=== PATIENT | male | born 1960 | race Caucasian/White ===

== ENCOUNTER 2016-06-17 16:55 | Inpatient (IN) | payer MEDICARE ==
[~2016-06-17] VITALS: Ht 170.2 cm; Wt 78.9 kg
[2016-06-17 16:59] VITALS: BP 143/117
[2016-06-17] MEDS ORDERED: HYDROmorphone 1mg/ml Carpuject IVP ONE (17:30)
[2016-06-17 17:56] LABS: BASOPHILS % (AUTO) 1.4 % (0.0-2.0); EOSINOPHILS % (AUTO) 0.6 % (0.0-3.0); LYMPHOCYTES % (AUTO) 13.8 % (20.0-45.0); MEAN CORPUSCULAR HEMOGLOBIN 30.8 PG (27.0-31.0); MEAN CORPUSCULAR HGB CONC 33.8 G/DL (32.0-36.0); MEAN CORPUSCULAR VOLUME 91 FL (80-99); MEAN PLATELET VOLUME 6.5 FL (6.5-10.1); MONOCYTES % (AUTO) 7.7 % (1.0-10.0); NEUTROPHILS % (AUTO) 76.5 % (45.0-75.0); PLATELET COUNT 197 K/UL (150-450); RED BLOOD COUNT 4.79 M/UL (4.70-6.10); WHITE BLOOD COUNT 6.5 K/UL (4.8-10.8)
[2016-06-17 18:14] LABS: ALANINE AMINOTRANSFERASE 30 U/L (3-41); ALBUMIN/GLOBULIN RATIO 1.3 (1.0-2.7); ANION GAP 17 (5-15); ASPARTATE AMINO TRANSFERASE 41 U/L (5-40); CALCIUM 9.1 mg/dL (8.6-10.2); CARBON DIOXIDE 26 mEQ/L (20-30); CHLORIDE 97 mEQ/L (98-107); CREATININE 0.9 mg/dL (0.7-1.2); GLOMERULAR FILTRATION RATE > 60 mL/min (>60); HEMOLYSIS 6; LIPASE 24 U/L (< 60); SODIUM 140 mEQ/L (135-145); TOTAL PROTEIN 7.6 g/dL (6.6-8.7)
[2016-06-17] MEDS ORDERED: DEPAKOTE125 MG PO (19:37)
[2016-06-17] MEDS ORDERED: FENTANYL1 EAC1 TOPIC (19:37)
[2016-06-17] MEDS ORDERED: AMITRIPTYLINE100 MG ORAL (19:37)
[2016-06-17] MEDS ORDERED: FLUTICASONE PRO16 G1 NASAL (19:37)
[2016-06-17] MEDS ORDERED: GABAPENTIN600 MG ORAL (19:37)
[2016-06-17] MEDS ORDERED: FAMOTIDINE20 MG ORAL (19:37)
[2016-06-17] MEDS ORDERED: DIAZEPAM5 MG ORAL (19:37)
[2016-06-17] MEDS ORDERED: CYMBALTA30 MG ORAL (19:37)
[2016-06-17] MEDS ORDERED: VITAMIN C500 M1 ORAL (19:37)
[2016-06-17] MEDS ORDERED: LISINOPRIL40 MG ORAL (19:37)
[2016-06-17] MEDS ORDERED: RISPERDAL1 MG PO (19:37)
[2016-06-17] MEDS ORDERED: MULTIVITAMINS1 EAC2 ORAL (19:37)
[2016-06-17] MEDS ORDERED: TRAZODONE HCL150 MG ORAL (19:37)
[2016-06-17] MEDS ORDERED: MESALAMINE800 MG PO (19:37)
[2016-06-17 19:58] LABS: APPEARANCE,URINE CLEAR; KETONES,URINE 2+ (NEGATIVE); LEUKOCYTE ESTERASE ,URINE NEGATIVE (NEGATIVE); NITRITE,URINE NEGATIVE (NEGATIVE); PH,URINE 8 (4.5-8.0); PROTEIN,URINE NEGATIVE (NEGATIVE); UROBILINOGEN,URINE NORMAL MG/DL (0.0-1.0)
[2016-06-17] MEDS ORDERED: Miralax 17gm pkt ORAL PRN (20:00)
[2016-06-17] MEDS ORDERED: cloNIDine 0.2mg Tab ORAL ONE (20:00)
[2016-06-17] MEDS ORDERED: Nitroglycerin Subl 0.4mg tab (Bottle Of 25) SL PRN (20:00)
[2016-06-17] MEDS ORDERED: Mylanta II UD 30ml ORAL PRN (20:00)
[2016-06-17] MEDS: D5 1/2NS 1,000 ML IV SCH (20:20)
[2016-06-17] MEDS: Heparin 5000 units/ml inj SUBQ SCH (21:00)
[2016-06-17 21:14] VITALS: BP 142/103
--- NOTE | 2016-06-17 21:50 | Emergency Room Report ---
History of Present Illness General Chief Complaint: Abdominal Pain Source: Medical Record Present Illness HPI 55-year-old male presents ED complaining of abdominal pain. Patient resides in SNF. Has history of chronic abdominal pain. History of Crohn's and has had multiple surgeries. States that he is unable to see pain management doctor for several weeks now. The facility is unable to renew his pain medication so he sent here for evaluation. Patient states the pain is his usual pain with his not receive pain medications. Pain is sharp. 10/10. Nonradiating. No aggravating relieving factors. Denies chest pain or shortness of breath. Denies nausea or vomiting. Denies any other associated symptoms Allergies: Coded Allergies: DIPHENHYDRAMINE (Verified Allergy, Unknown, 06/17/16) LORAZEPAM (Verified Allergy, Unknown, 06/17/16) MORPHINE (Verified Allergy, Unknown, 06/17/16) Patient History Past Medical History: HTN, COPD, other - crohns Past Surgical History: none Pertinent Family History: none Social History: Denies: alcohol use, drug use, smoking Immunizations: UTD Reviewed Nursing Documentation: PMH: Agreed, PSxH: Agreed Nursing Documentation-PMH Hx Hypertension: Yes Hx COPD: Yes Hx Gastrointestinal Problems: Yes - Chron's Ds. Review of Systems All Other Systems: negative except mentioned in HPI Physical Exam Vital Signs Date Time Temp Pulse Resp B/P Pulse Ox O2 Delivery O2 Flow Rate FiO2 06/17/16 16:48 98.8 89 18 143/117 95 Room Air Sp02 EP Interpretation: reviewed, normal General Appearance: no apparent distress, alert, GCS 15, non-toxic Head: normocephalic, atraumatic Eyes: bilateral eye PERRL, bilateral eye normal inspection ENT: hearing grossly normal, normal pharynx, no angioedema, normal voice Neck: full range of motion, supple/symm/no masses Respiratory: chest non-tender, lungs clear, normal breath sounds, speaking full sentences Cardiovascular #1: regular rate, rhythm, no edema Cardiovascular #2: 2+ carotid (R), 2+ carotid (L), 2+ radial (R), 2+ radial (L) , 2+ dorsalis pedis (R), 2+ dorsalis pedis (L) Gastrointestinal: normal bowel sounds, soft, non-distended, no guarding, no rebound, tenderness Rectal: deferred Genitourinary: normal inspection, no CVA tenderness Musculoskeletal: back normal, gait/station normal, normal range of motion, non- tender Neurologic: alert, oriented x3, responsive, motor strength/tone normal, sensory intact, speech normal Psychiatric: judgement/insight normal, memory normal, mood/affect normal, no suicidal/homicidal ideation Reflexes: 3+ bicep (R), 3+ bicep (L), 3+ tricep (R), 3+ tricep (L), 3+ knee (R) , 3+ knee (L) Skin: normal color, no rash, warm/dry, well hydrated Lymphatic: no adenopathy Medical Decision Making Diagnostic Impression: Primary Impression: Intractable abdominal pain Additional Impression: Crohns disease Qualified Codes: K50.919 - Crohn's disease, unspecified, with unspecified complications ER Course Hospital Course 55-year-old male presents to ED for abdominal pain. History of Crohn's Differential diagnoses include: pancreatitis, sepsis, UTI, crohns flare Clinical course Patient placed on stretcher. radiation monitor. After initial history and physical I ordered labs, IV fluids, UA, pain medication Labs - no leukocytosis, Hb/Hct stable. electrolytes ok Patient required multiple rounds of medication to get pain under control. Pain is his typical chronic pain from Crohn's. No reason for further imaging at this time. Patient will require admission for pain management BP elevated in ER. Given clonidine with BP Case discussed with Dr. Salmon and he agreed to accept the patient to his service for further care and support I feel this is a highly complex case requiring extensive working including EKG/ Rhythm strip, Xray/CT/US, Blood/urine lab work, repeat exams while in ED, and administration of strong opiates/narcotics for pain control, admission to hospital or close patient follow up. Diagnosis - intractable abdominal pain, Crohn's disease Patient admitted to floor in serious condition Labs Test 06/17/16 15:30 06/17/16 19:40 White Blood Count 6.5 K/UL (4.8-10.8) Red Blood Count 4.79 M/UL (4.70-6.10) Hemoglobin 14.7 G/DL (14.2-18.0) Hematocrit 43.6 % (42.0-52.0) Mean Corpuscular Volume 91 FL (80-99) Mean Corpuscular Hemoglobin 30.8 PG (27.0-31.0) Mean Corpuscular Hemoglobin Concent 33.8 G/DL (32.0-36.0) Red Cell Distribution Width 12.0 % (11.6-14.8) Platelet Count 197 K/UL (150-450) Mean Platelet Volume 6.5 FL (6.5-10.1) Neutrophils (%) (Auto) 76.5 % (45.0-75.0) Lymphocytes (%) (Auto) 13.8 % (20.0-45.0) Monocytes (%) (Auto) 7.7 % (1.0-10.0) Eosinophils (%) (Auto) 0.6 % (0.0-3.0) Basophils (%) (Auto) 1.4 % (0.0-2.0) Sodium Level 140 mEQ/L (135-145) Potassium Level 4.0 mEQ/L (3.4-4.9) Chloride Level 97 mEQ/L (98-107) Carbon Dioxide Level 26 mEQ/L (20-30) Anion Gap 17 (5-15) Blood Urea Nitrogen 9 mg/dL (7-23) Creatinine 0.9 mg/dL (0.7-1.2) Estimat Glomerular Filtration Rate > 60 mL/min (>60) Glucose Level 88 mg/dL (74-106) Calcium Level 9.1 mg/dL (8.6-10.2) Total Bilirubin 0.3 mg/dL (0.0-1.2) Aspartate Amino Transf (AST/SGOT) 41 U/L (5-40) Alanine Aminotransferase (ALT/SGPT) 30 U/L (3-41) Alkaline Phosphatase 81 U/L (40-129) Total Protein 7.6 g/dL (6.6-8.7) Albumin 4.3 g/dL (3.5-5.2) Globulin 3.3 g/dL Albumin/Globulin Ratio 1.3 (1.0-2.7) Lipase 24 U/L (< 60) Urine Color Pale yellow Urine Appearance Clear Urine pH 8 (4.5-8.0) Urine Specific [place] 1.010 (1.005-1.035) Urine Protein Negative (NEGATIVE) Urine Glucose (UA) Negative (NEGATIVE) Urine Ketones 2+ (NEGATIVE) Urine Occult Blood Negative (NEGATIVE) Urine Nitrite Negative (NEGATIVE) Urine Bilirubin Negative (NEGATIVE) Urine Urobilinogen Normal MG/DL (0.0-1.0) Urine Leukocyte Esterase Negative (NEGATIVE) Last Vital Signs Date Time Temp Pulse Resp B/P Pulse Ox O2 Delivery O2 Flow Rate FiO2 06/17/16 21:14 98.8 82 18 142/103 99 Room Air Status: improved Disposition: ADMITTED INPATIENT Condition: Serious Referrals: JG SALMON (PCP) HENRI TATE M.D. Jun 17, 2016 21:50
[2016-06-17] MEDS ORDERED: HYDROmorphone 1mg/ml Carpuject IVP PRN (22:30)
[2016-06-17 22:50] VITALS: BP 140/93
--- NOTE | 2016-06-17 23:19 | Pulmonology Progress Note ---
Assessment/Plan Problems: (1) COPD (chronic obstructive pulmonary disease) (2) Abdominal distention (3) Crohns disease (4) Intractable abdominal pain Assessment/Plan npo Iv fluids pain management respiratory treatment GI evaluation Subjective Interval Events: c/o abdominal pain Allergies: Coded Allergies: DIPHENHYDRAMINE (Verified Allergy, Unknown, 06/17/16) LORAZEPAM (Verified Allergy, Unknown, 06/17/16) MORPHINE (Verified Allergy, Unknown, 06/17/16) Objective Last 24 Hour Vital Signs Date Time Temp Pulse Resp B/P Pulse Ox O2 Delivery O2 Flow Rate FiO2 06/17/16 22:50 98.1 75 18 140/93 93 Room Air 06/17/16 21:14 98.8 82 18 142/103 99 Room Air 06/17/16 20:05 143/117 06/17/16 18:14 98.8 06/17/16 16:59 98.8 81 18 143/117 95 Room Air 06/17/16 16:48 98.8 89 18 143/117 95 Room Air General Appearance: WD/WN HEENT: normocephalic, anicteric Respiratory/Chest: chest wall non-tender, lungs clear Cardiovascular: normal peripheral pulses, normal rate Abdomen: normal bowel sounds, soft, non tender Extremities: no cyanosis Skin: no rash Laboratory Tests 06/17/16 15:30: White Blood Count 6.5, Red Blood Count 4.79, Hemoglobin 14.7, Hematocrit 43.6, Mean Corpuscular Volume 91, Mean Corpuscular Hemoglobin 30.8, Mean Corpuscular Hemoglobin Concent 33.8, Red Cell Distribution Width 12.0, Platelet Count 197, Mean Platelet Volume 6.5, Neutrophils (%) (Auto) 76.5H, Lymphocytes (%) (Auto) 13.8L, Monocytes (%) (Auto) 7.7, Eosinophils (%) (Auto) 0.6, Basophils (%) (Auto ) 1.4, Sodium Level 140, Potassium Level 4.0, Chloride Level 97L, Carbon Dioxide Level 26, Anion Gap 17H, Blood Urea Nitrogen 9, Creatinine 0.9, Estimat Glomerular Filtration Rate > 60, Glucose Level 88, Calcium Level 9.1, Total Bilirubin 0.3, Aspartate Amino Transf (AST/SGOT) 41H, Alanine Aminotransferase ( ALT/SGPT) 30, Alkaline Phosphatase 81, Total Protein 7.6, Albumin 4.3, Globulin 3.3, Albumin/Globulin Ratio 1.3, Lipase 24 06/17/16 19:40: Urine Color Pale yellow, Urine Appearance Clear, Urine pH 8, Urine Specific [place] 1.010, Urine Protein Negative, Urine Glucose (UA) Negative, Urine Ketones 2+H, Urine Occult Blood Negative, Urine Nitrite Negative, Urine Bilirubin Negative, Urine Urobilinogen Normal, Urine Leukocyte Esterase Negative Current Medications Medications (Trade) Dose Ordered Sig/William Route PRN Reason Start Time Stop Time Status Last Admin Dose Admin Acetaminophen (Tylenol) 650 mg Q4H PRN ORAL fever 06/17/16 20:00 07/17/16 19:59 Al Hydroxide/Mg Hydroxide (Mylanta II) 30 ml Q6H PRN ORAL dyspepsia 06/17/16 20:00 07/17/16 19:59 Dextrose (Dextrose 50%) STAT PRN IV Hypoglycemia 06/17/16 20:00 07/17/16 19:59 Dextrose/Sodium Chloride (D5 0.45% NS) 1,000 ml @ 75 mls/hr [id number] IV 06/17/16 20:00 07/17/16 19:59 06/17/16 20:20 Heparin Sodium (Porcine) (Heparin 5000 units/ml) 5,000 units EVERY 12 HOURS SUBQ 06/17/16 21:00 07/17/16 20:59 Hydromorphone HCl (Dilaudid) 1 mg Q3H PRN IVP For Pain 06/17/16 22:30 06/24/16 22:29 06/17/16 22:45 Nitroglycerin (Ntg) 0.4 mg Q5M X 3 DOSES PRN SL Prn Chest Pain 06/17/16 20:00 07/17/16 19:59 Ondansetron HCl (Zofran) 4 mg Q6H PRN IVP Nausea & Vomiting 06/17/16 20:00 07/17/16 19:59 Polyethylene Glycol (Miralax) 17 gm HSPRN PRN ORAL Constipation 06/17/16 20:00 07/17/16 19:59 KHALIF RILEY Jun 17, 2016 23:19
[2016-06-18] VITALS: BP 152/103
[2016-06-18] MEDS ORDERED: HYDROmorphone 1mg/ml Carpuject IVP PRN (01:30)
[2016-06-18 07:03] LABS: ALANINE AMINOTRANSFERASE 24 U/L (3-41); ALBUMIN/GLOBULIN RATIO 1.2 (1.0-2.7); AMYLASE 36 U/L (10-110); ANION GAP 13 (5-15); ASPARTATE AMINO TRANSFERASE 32 U/L (5-40); CALCIUM 8.5 mg/dL (8.6-10.2); CARBON DIOXIDE 26 mEQ/L (20-30); CHLORIDE 98 mEQ/L (98-107); CREATININE 0.8 mg/dL (0.7-1.2); GLOMERULAR FILTRATION RATE > 60 mL/min (>60); HEMOLYSIS 0; POTASSIUM 3.5 mEQ/L (3.4-4.9); SODIUM 137 mEQ/L (135-145); TOTAL PROTEIN 6.5 g/dL (6.6-8.7)
[2016-06-18 07:16] LABS: EOSINOPHILS % (AUTO) 4.1 % (0.0-3.0); LYMPHOCYTES % (AUTO) 24.6 % (20.0-45.0); MEAN CORPUSCULAR HEMOGLOBIN 30.5 PG (27.0-31.0); MEAN CORPUSCULAR HGB CONC 33.3 G/DL (32.0-36.0); MEAN CORPUSCULAR VOLUME 92 FL (80-99); MEAN PLATELET VOLUME 6.3 FL (6.5-10.1); MONOCYTES % (AUTO) 14.2 % (1.0-10.0); NEUTROPHILS % (AUTO) 55.1 % (45.0-75.0); PLATELET COUNT 165 K/UL (150-450); RED BLOOD COUNT 4.34 M/UL (4.70-6.10); RED CELL DISTRIBUTION WIDTH 12.1 % (11.6-14.8); WHITE BLOOD COUNT 4.6 K/UL (4.8-10.8)
[2016-06-18] MEDS: DULoxetine 30mg cap ORAL SCH (08:23)
[2016-06-18] MEDS: D5 1/2NS 1,000 ML IV SCH ×2 (08:24→22:35)
[2016-06-18] MEDS: Heparin 5000 units/ml inj SUBQ SCH ×2 (08:30→21:00)
[2016-06-18 08:49] VITALS: BP 119/84
--- NOTE | 2016-06-18 09:06 | Consultation ---
History of Present Illness General Date patient seen: Jun 18, 2016 Chief Complaint: Abdominal Pain Present Illness Allergies: Coded Allergies: DIPHENHYDRAMINE (Verified Allergy, Unknown, 06/17/16) LORAZEPAM (Verified Allergy, Unknown, 06/17/16) MORPHINE (Verified Allergy, Unknown, 06/17/16) Medication History Scheduled Amitriptyline HCl (Amitriptyline HCl), 100 MG ORAL BEDTIME, (Reported) Ascorbic Acid* (Vitamin C*), 500 MG ORAL DAILY, (Reported) Duloxetine Hcl* (Cymbalta*), 30 MG ORAL DAILY, (Reported) Famotidine (Famotidine), 20 MG ORAL DAILY, (Reported) Fentanyl 50MCG Patch (Fentanyl 50MCG Patch*), 1 PATCH TOPIC EVERY 72 HOURS, ( Reported) Fluticasone Propionate* (Fluticasone Propionate*), 1 SPRAY NASAL DAILY, ( Reported) Gabapentin* (Gabapentin*), 600 MG ORAL THREE TIMES A DAY, (Reported) Lisinopril* (Lisinopril*), 40 MG ORAL DAILY, (Reported) Multivitamins* (Multivitamins*), 1 TAB ORAL DAILY, (Reported) Risperidone* (Risperdal*), 1 MG PO DAILY, (Reported) Trazodone* (Trazodone*), 150 MG ORAL BEDTIME, (Reported) Scheduled PRN Diazepam* (Diazepam*), 5 MG ORAL Q12HR PRN for ANXIETY, (Reported) Miscellaneous Medications Divalproex Sodium (Depakote), 125 MG PO, (Reported) Mesalamine (Mesalamine), 800 MG PO, (Reported) Patient History Healthcare decision maker Resuscitation status Full Code Advanced Directive on File Physical Exam Last 24 Hour Vital Signs Date Time Temp Pulse Resp B/P Pulse Ox O2 Delivery O2 Flow Rate FiO2 06/18/16 08:49 98.3 54 17 119/84 95 Room Air 06/18/16 00:00 97.7 77 18 152/103 94 Room Air 06/17/16 23:15 98.1 06/17/16 22:50 98.1 75 18 140/93 93 Room Air 06/17/16 21:17 98.8 82 18 142/103 99 Room Air 06/17/16 21:14 98.8 82 18 142/103 99 Room Air 06/17/16 20:05 143/117 06/17/16 18:14 98.8 06/17/16 16:59 98.8 81 18 143/117 95 Room Air 06/17/16 16:48 98.8 89 18 143/117 95 Room Air Intake and Output 06/17/16 06/18/16 19:00 07:00 Intake Total 500 ml 525 ml Balance 500 ml 525 ml Intake IV Total 500 ml 525 ml # Voids 1 Laboratory Tests Test 06/17/16 15:30 06/17/16 19:40 06/18/16 05:30 White Blood Count 6.5 K/UL (4.8-10.8) 4.6 K/UL (4.8-10.8) L Red Blood Count 4.79 M/UL (4.70-6.10) 4.34 M/UL (4.70-6.10) L Hemoglobin 14.7 G/DL (14.2-18.0) 13.2 G/DL (14.2-18.0) L Hematocrit 43.6 % (42.0-52.0) 39.7 % (42.0-52.0) L Mean Corpuscular Volume 91 FL (80-99) 92 FL (80-99) Mean Corpuscular Hemoglobin 30.8 PG (27.0-31.0) 30.5 PG (27.0-31.0) Mean Corpuscular Hemoglobin Concent 33.8 G/DL (32.0-36.0) 33.3 G/DL (32.0-36.0) Red Cell Distribution Width 12.0 % (11.6-14.8) 12.1 % (11.6-14.8) Platelet Count 197 K/UL (150-450) 165 K/UL (150-450) Mean Platelet Volume 6.5 FL (6.5-10.1) 6.3 FL (6.5-10.1) L Neutrophils (%) (Auto) 76.5 % (45.0-75.0) H 55.1 % (45.0-75.0) Lymphocytes (%) (Auto) 13.8 % (20.0-45.0) L 24.6 % (20.0-45.0) Monocytes (%) (Auto) 7.7 % (1.0-10.0) 14.2 % (1.0-10.0) H Eosinophils (%) (Auto) 0.6 % (0.0-3.0) 4.1 % (0.0-3.0) H Basophils (%) (Auto) 1.4 % (0.0-2.0) 2.0 % (0.0-2.0) Sodium Level 140 mEQ/L (135-145) 137 mEQ/L (135-145) Potassium Level 4.0 mEQ/L (3.4-4.9) 3.5 mEQ/L (3.4-4.9) Chloride Level 97 mEQ/L (98-107) L 98 mEQ/L (98-107) Carbon Dioxide Level 26 mEQ/L (20-30) 26 mEQ/L (20-30) Anion Gap 17 (5-15) H 13 (5-15) Blood Urea Nitrogen 9 mg/dL (7-23) 8 mg/dL (7-23) Creatinine 0.9 mg/dL (0.7-1.2) 0.8 mg/dL (0.7-1.2) Estimat Glomerular Filtration Rate > 60 mL/min (>60) > 60 mL/min (>60) Glucose Level 88 mg/dL (74-106) 82 mg/dL (74-106) Calcium Level 9.1 mg/dL (8.6-10.2) 8.5 mg/dL (8.6-10.2) L Total Bilirubin 0.3 mg/dL (0.0-1.2) 0.4 mg/dL (0.0-1.2) Aspartate Amino Transf (AST/SGOT) 41 U/L (5-40) H 32 U/L (5-40) Alanine Aminotransferase (ALT/SGPT) 30 U/L (3-41) 24 U/L (3-41) Alkaline Phosphatase 81 U/L (40-129) 69 U/L (40-129) Total Protein 7.6 g/dL (6.6-8.7) 6.5 g/dL (6.6-8.7) L Albumin 4.3 g/dL (3.5-5.2) 3.6 g/dL (3.5-5.2) Globulin 3.3 g/dL 2.9 g/dL Albumin/Globulin Ratio 1.3 (1.0-2.7) 1.2 (1.0-2.7) Lipase 24 U/L (< 60) Urine Color Pale yellow Urine Appearance Clear Urine pH 8 (4.5-8.0) Urine Specific [place] 1.010 (1.005-1.035) Urine Protein Negative (NEGATIVE) Urine Glucose (UA) Negative (NEGATIVE) Urine Ketones 2+ (NEGATIVE) H Urine Occult Blood Negative (NEGATIVE) Urine Nitrite Negative (NEGATIVE) Urine Bilirubin Negative (NEGATIVE) Urine Urobilinogen Normal MG/DL (0.0-1.0) Urine Leukocyte Esterase Negative (NEGATIVE) Activated Partial Thromboplast Time 25 SEC (23-33) Amylase Level 36 U/L (10-110) Height (Feet): 5 Height (Inches): 7.00 Weight (Pounds): 174 Medications Current Medications Medications (Trade) Dose Ordered Sig/William Route PRN Reason Start Time Stop Time Status Last Admin Dose Admin Acetaminophen (Tylenol) 650 mg Q4H PRN ORAL fever 06/17/16 20:00 07/17/16 19:59 Al Hydroxide/Mg Hydroxide (Mylanta II) 30 ml Q6H PRN ORAL dyspepsia 06/17/16 20:00 07/17/16 19:59 Amitriptyline HCl (Elavil) 100 mg BEDTIME ORAL 06/18/16 21:00 07/18/16 20:59 Dextrose (Dextrose 50%) STAT PRN IV Hypoglycemia 06/17/16 20:00 07/17/16 19:59 Dextrose/Sodium Chloride (D5 0.45% NS) 1,000 ml @ 75 mls/hr [id number] IV 06/17/16 20:00 07/17/16 19:59 06/18/16 08:24 Diazepam (Valium) 5 mg Q12H PRN ORAL ANXIETY 06/18/16 07:45 06/25/16 07:44 Duloxetine HCl (Cymbalta) 30 mg DAILY ORAL 06/18/16 09:00 07/18/16 08:59 06/18/16 08:23 Fentanyl (Duragesic) 1 patch EVERY 72 HOURS TDERMAL 06/19/16 09:00 06/26/16 08:59 Gabapentin (Neurontin) 600 mg THREE TIMES A DAY ORAL 06/18/16 09:00 07/18/16 08:59 06/18/16 08:22 Heparin Sodium (Porcine) (Heparin 5000 units/ml) 5,000 units EVERY 12 HOURS SUBQ 06/17/16 21:00 07/17/16 20:59 06/18/16 08:30 Hydromorphone HCl (Dilaudid) 2 mg Q3H PRN IVP For Pain 06/18/16 01:30 06/25/16 01:29 06/18/16 08:23 Nitroglycerin (Ntg) 0.4 mg Q5M X 3 DOSES PRN SL Prn Chest Pain 06/17/16 20:00 07/17/16 19:59 Ondansetron HCl (Zofran) 4 mg Q6H PRN IVP Nausea & Vomiting 06/17/16 20:00 07/17/16 19:59 Polyethylene Glycol (Miralax) 17 gm HSPRN PRN ORAL Constipation 06/17/16 20:00 07/17/16 19:59 Risperidone (RisperDAL) 1 mg DAILY ORAL 06/18/16 09:00 07/18/16 08:59 06/18/16 08:23 Trazodone HCl (Desyrel) 150 mg BEDTIME ORAL 06/18/16 21:00 07/18/16 20:59 Assessment/Plan Assessment/Plan (1) Crohn's Disease (2) Intractable abdominal pain (3) Lumbar DDD (4) Lumbar Spondylosis Seen dictated. MILAN MALLOY Jun 18, 2016 09:06
--- NOTE | 2016-06-18 13:42 | Diagnostic Imaging Report ---
Indication: Abdominal pain Technique: Supine view of the abdomen Comparison: none Findings: Considerable bowel gas is present. Suspect that most of this is in the ascending and transverse colon which is upper limits of normal in caliber but not frankly dilated. However, in the left lower quadrant and midabdomen there are also some dilated small bowel loops. No unusual masses or calcifications. Impression: Dilated small bowel loops. May reflect ileus or small bowel. The presence of considerable colon gas favors the former. Recommend followup radiographs, consider CT as clinically indicated Dr. Lott notified at the time of interpretation
--- NOTE | 2016-06-18 15:08 | Pulmonology Progress Note ---
Assessment/Plan Problems: (1) COPD (chronic obstructive pulmonary disease) (2) Abdominal distention (3) Crohns disease (4) Intractable abdominal pain Assessment/Plan pain consult appreciated low residual diet Iv fluids pain management respiratory treatment GI evaluation Subjective ROS Limited/Unobtainable: No Interval Events: no new ccmplains Allergies: Coded Allergies: DIPHENHYDRAMINE (Verified Allergy, Unknown, 06/17/16) LORAZEPAM (Verified Allergy, Unknown, 06/17/16) MORPHINE (Verified Allergy, Unknown, 06/17/16) Objective Last 24 Hour Vital Signs Date Time Temp Pulse Resp B/P Pulse Ox O2 Delivery O2 Flow Rate FiO2 06/18/16 14:37 98.3 06/18/16 12:20 98.3 06/18/16 08:49 98.3 54 17 119/84 95 Room Air 06/18/16 00:00 97.7 77 18 152/103 94 Room Air 06/17/16 23:15 98.1 06/17/16 22:50 98.1 75 18 140/93 93 Room Air 06/17/16 21:17 98.8 82 18 142/103 99 Room Air 06/17/16 21:14 98.8 82 18 142/103 99 Room Air 06/17/16 20:05 143/117 06/17/16 18:14 98.8 06/17/16 16:59 98.8 81 18 143/117 95 Room Air 06/17/16 16:48 98.8 89 18 143/117 95 Room Air Intake and Output 06/17/16 06/18/16 19:00 07:00 Intake Total 500 ml 525 ml Balance 500 ml 525 ml IV Total 500 ml 525 ml # Voids 1 General Appearance: WD/WN HEENT: normocephalic, anicteric Respiratory/Chest: chest wall non-tender, lungs clear Cardiovascular: normal peripheral pulses, normal rate Abdomen: normal bowel sounds, soft, non tender Extremities: no cyanosis Skin: no rash, no lesions Laboratory Tests 06/17/16 15:30: White Blood Count 6.5, Red Blood Count 4.79, Hemoglobin 14.7, Hematocrit 43.6, Mean Corpuscular Volume 91, Mean Corpuscular Hemoglobin 30.8, Mean Corpuscular Hemoglobin Concent 33.8, Red Cell Distribution Width 12.0, Platelet Count 197, Mean Platelet Volume 6.5, Neutrophils (%) (Auto) 76.5H, Lymphocytes (%) (Auto) 13.8L, Monocytes (%) (Auto) 7.7, Eosinophils (%) (Auto) 0.6, Basophils (%) (Auto ) 1.4, Sodium Level 140, Potassium Level 4.0, Chloride Level 97L, Carbon Dioxide Level 26, Anion Gap 17H, Blood Urea Nitrogen 9, Creatinine 0.9, Estimat Glomerular Filtration Rate > 60, Glucose Level 88, Calcium Level 9.1, Total Bilirubin 0.3, Aspartate Amino Transf (AST/SGOT) 41H, Alanine Aminotransferase ( ALT/SGPT) 30, Alkaline Phosphatase 81, Total Protein 7.6, Albumin 4.3, Globulin 3.3, Albumin/Globulin Ratio 1.3, Lipase 24 06/17/16 19:40: Urine Color Pale yellow, Urine Appearance Clear, Urine pH 8, Urine Specific [place] 1.010, Urine Protein Negative, Urine Glucose (UA) Negative, Urine Ketones 2+H, Urine Occult Blood Negative, Urine Nitrite Negative, Urine Bilirubin Negative, Urine Urobilinogen Normal, Urine Leukocyte Esterase Negative 06/18/16 05:30: White Blood Count 4.6L, Red Blood Count 4.34L, Hemoglobin 13.2L, Hematocrit 39.7L, Mean Corpuscular Volume 92, Mean Corpuscular Hemoglobin 30.5, Mean Corpuscular Hemoglobin Concent 33.3, Red Cell Distribution Width 12.1, Platelet Count 165, Mean Platelet Volume 6.3L, Neutrophils (%) (Auto) 55.1, Lymphocytes ( %) (Auto) 24.6, Monocytes (%) (Auto) 14.2H, Eosinophils (%) (Auto) 4.1H, Basophils (%) (Auto) 2.0, Sodium Level 137, Potassium Level 3.5, Chloride Level 98, Carbon Dioxide Level 26, Anion Gap 13, Blood Urea Nitrogen 8, Creatinine 0.8 , Estimat Glomerular Filtration Rate > 60, Glucose Level 82, Calcium Level 8.5L , Total Bilirubin 0.4, Aspartate Amino Transf (AST/SGOT) 32, Alanine Aminotransferase (ALT/SGPT) 24, Alkaline Phosphatase 69, Total Protein 6.5L, Albumin 3.6, Globulin 2.9, Albumin/Globulin Ratio 1.2, Activated Partial Thromboplast Time 25, Amylase Level 36 Current Medications Medications (Trade) Dose Ordered Sig/William Route PRN Reason Start Time Stop Time Status Last Admin Dose Admin Acetaminophen (Tylenol) 650 mg Q4H PRN ORAL fever 06/17/16 20:00 07/17/16 19:59 Al Hydroxide/Mg Hydroxide (Mylanta II) 30 ml Q6H PRN ORAL dyspepsia 06/17/16 20:00 07/17/16 19:59 Amitriptyline HCl (Elavil) 100 mg BEDTIME ORAL 06/18/16 21:00 07/18/16 20:59 Cholestyramine Resin (Questran) 4 gm BID ORAL 06/18/16 18:00 07/18/16 17:59 Dextrose (Dextrose 50%) STAT PRN IV Hypoglycemia 06/17/16 20:00 07/17/16 19:59 Dextrose/Sodium Chloride (D5 0.45% NS) 1,000 ml @ 75 mls/hr [id number] IV 06/17/16 20:00 07/17/16 19:59 06/18/16 08:24 Diazepam (Valium) 5 mg Q12H PRN ORAL ANXIETY 06/18/16 07:45 06/25/16 07:44 Duloxetine HCl (Cymbalta) 30 mg DAILY ORAL 06/18/16 09:00 07/18/16 08:59 06/18/16 08:23 Fentanyl (Duragesic) 1 patch EVERY 72 HOURS TDERMAL 06/19/16 09:00 06/26/16 08:59 Gabapentin (Neurontin) 600 mg THREE TIMES A DAY ORAL 06/18/16 09:00 07/18/16 08:59 06/18/16 13:29 Heparin Sodium (Porcine) (Heparin 5000 units/ml) 5,000 units EVERY 12 HOURS SUBQ 06/17/16 21:00 07/17/16 20:59 06/18/16 08:30 Hydromorphone HCl (Dilaudid) 3 mg Q3H PRN IM For Pain 06/18/16 15:00 06/25/16 14:59 06/18/16 14:47 Mesalamine (Asacol) 800 mg THREE TIMES A DAY ORAL 06/18/16 14:00 07/18/16 13:59 06/18/16 14:46 Nitroglycerin (Ntg) 0.4 mg Q5M X 3 DOSES PRN SL Prn Chest Pain 06/17/16 20:00 07/17/16 19:59 Ondansetron HCl (Zofran) 4 mg Q6H PRN IVP Nausea & Vomiting 06/17/16 20:00 07/17/16 19:59 Polyethylene Glycol (Miralax) 17 gm HSPRN PRN ORAL Constipation 06/17/16 20:00 07/17/16 19:59 Risperidone (RisperDAL) 1 mg DAILY ORAL 06/18/16 09:00 07/18/16 08:59 06/18/16 08:23 Trazodone HCl (Desyrel) 150 mg BEDTIME ORAL 06/18/16 21:00 07/18/16 20:59 KHALIF RILEY 21, 2017 15:08
[2016-06-18 16:20] VITALS: BP 150/101
[2016-06-18 17:05] VITALS: BP 141/97
[2016-06-18 20:00] VITALS: BP 137/90
[2016-06-18] MEDS: Cholestyramine 4gm Pkt ORAL SCH (20:53)
[2016-06-18] MEDS: TraZODone 100mg tab ORAL SCH (20:53)
[2016-06-18] MEDS: Amitriptyline 100mg tab ORAL SCH (20:53)
--- NOTE | 2016-06-18 22:19 | History and Physical Report ---
DATE OF ADMISSION: 06/17/2016 TIME SEEN: At 1 p.m. ATTENDING PHYSICIAN: Jose Lott D.O. CONSULTANTS: 1. Eli Jackson M.D. 2. Fahad Harry M.D. 3. Whitney Ramírez M.D. BRIEF HISTORY: This is a 55-year-old male from [facility], presented with increasing intractable abdominal pain. He does have a history of ulcerative colitis and Crohn's and multiple abdominal surgeries. Currently, calm, resting in bed, feeling better, ate okay, no complaint. REVIEW OF SYSTEMS: No chest pain. No shortness of breath. No nausea, vomiting, or diarrhea. PAST MEDICAL HISTORY: Ulcerative colitis, Crohn's disease, and hypertension. PAST SURGICAL HISTORY: Multiple abdominal surgeries and possible adhesion surgery. ALLERGIES: Morphine and Ativan. MEDICATIONS: Duragesic patch, Elavil, Desyrel, Questran, Asacol, Cymbalta, Neurontin, Risperdal, Valium, Dilaudid, heparin, Tylenol, MiraLax, Zofran, Dilantin, diphenhydramine, lorazepam, and nitroglycerin. SOCIAL HISTORY: No smoking. No alcohol. No intravenous drug use. FAMILY HISTORY: Noncontributory. PHYSICAL EXAMINATION: GENERAL: Calm in bed, oriented x3, in no distress. VITAL SIGNS: Temperature is 98 degrees, pulse 54, respirations 17, and blood pressure 119/84. CARDIOVASCULAR: No murmur. LUNGS: Distant and clear. ABDOMEN: Slightly tender and slightly distended. No guarding. No rigidity. No rebound. Bowel sounds positive. EXTREMITIES: No cyanosis, clubbing, or edema. NEUROLOGIC: Cranial nerves II through XII are grossly intact. Deep tendon reflexes 2+. Muscle strength is 4/5. LABORATORY DATA: Labs at this time show a white count of 4.6, hemoglobin and hematocrit 12/39, and platelets 165,000. BMP shows calcium of 8.5, otherwise normal. PTT is 25. Urinalysis, 2+ ketones. ASSESSMENT: 1. Intractable abdominal pain, status post surgery. 2. History of adhesions. 3. Ulcerative colitis. 4. Crohn's. 5. Hypertension. PLAN: Continue premedications. and blood pressure control. Dietary followup. OT/PT and dietary evaluation. CBC and BMP in the morning. Dr. Jackson, Dr. Harry, and Dr. Ramírez to consult. We will continue to follow this patient medically. Jose Lott D.O. DR: TRENT JOB#: [id number] CC:
[2016-06-18] MEDS: Depakote 125mg Sprinkles ORAL SCH (22:34)
--- NOTE | 2016-06-18 23:19 | Consultation ---
DATE OF CONSULTATION: 06/18/2016 CHIEF COMPLAINT: Abdominal pain. HISTORY OF PRESENT ILLNESS: This is a 55-year-old male with past medical history of inflammatory bowel disease according to him, he was diagnosed at age 14. He had a total colectomy, then he had multiple abdominal surgeries bowel resection and after that he was diagnosed with Crohn's. Currently, taking some Crohn's medication most probably mesalamine, but he does not know the exact name. He does not have any colon left, so it is most of the small intestine and he mentioned that he had multiple may be five surgeries on the small intestine and most of his also is removed. He was admitted to the hospital with complaint of abdominal pain. The patient first time at [place], but he has been going to multiple hospitals, last to the [place]. Apparently, he is going to the hospital frequently and is on lots of pain medication. PAST MEDICAL HISTORY: 1. History of inflammatory bowel disease most probably, Crohn's disease. 2. Hypertension. 3. COPD. PAST SURGICAL HISTORY: Total colectomy and also five abdominal surgeries after that with bowel resection. MEDICATIONS: Please see medication reconciliation list. ALLERGIES: Diphenhydramine, lorazepam, and morphine. SOCIAL HISTORY: The patient has a prior history of tobacco usage, quit many years ago. Also alcohol quit many years ago. No IV drug abuse. FAMILY HISTORY: Noncontributory. REVIEW OF SYSTEMS: A 10-point review of system was performed and pertinent positives in history of present illness. PHYSICAL EXAMINATION: GENERAL: This is a well-developed male, in no acute distress. VITAL SIGNS: Temperature 98.3 degrees, pulse 64, respirations 17, and blood pressure 119/84. HEENT: Normocephalic and atraumatic. Sclerae anicteric. NECK: Supple. No evidence of lymphadenopathy. CARDIOVASCULAR: Regular rate and rhythm. Plus S1 and S2. LUNGS: Decreased breath sounds bilaterally based on the supine exam. ABDOMEN: Soft, mildly distended. Mildly tender to palpation in bilateral lower quadrants. No rebound. No guarding. No peritoneal sign. EXTREMITIES: No cyanosis. No clubbing. No edema. LABORATORY AND DIAGNOSTIC DATA: Sodium 137, potassium 2.5, BUN 8, creatinine 0.8. White count is 4.6, hemoglobin 13, hematocrit 39, and platelets are 165,00. ASSESSMENT AND PLAN: The patient is a 55-year-old male with history of inflammatory bowel disease admitted to the hospital with abdominal pain. At this time, there is no acute finding. There is no evidence of anemia. No leukocytosis. No abnormal liver function tests, highly doubt that the patient has acute flare-up of the Crohn's disease. Also there is no obvious small bowel obstruction. The patient is passing gas and having bowel movements. So actually, the patient was admitted for pain management. Our plan will be to send ESR and C-reactive protein. I will get an abdominal x-ray. We will resume the patient's diet. Resume the patient's mesalamine and we will follow with labs and pain management. Fahad Harry M.D. DR: Biju JOB#: [id number] CC:
[2016-06-19] VITALS: BP 151/99
[2016-06-19 04:00] VITALS: BP 137/85
[2016-06-19 07:27] LABS: BASOPHILS % (AUTO) 1.9 % (0.0-2.0); EOSINOPHILS % (AUTO) 4.8 % (0.0-3.0); LYMPHOCYTES % (AUTO) 30.8 % (20.0-45.0); MEAN CORPUSCULAR HEMOGLOBIN 30.3 PG (27.0-31.0); MEAN CORPUSCULAR HGB CONC 32.9 G/DL (32.0-36.0); MEAN CORPUSCULAR VOLUME 92 FL (80-99); MEAN PLATELET VOLUME 7.2 FL (6.5-10.1); MONOCYTES % (AUTO) 14.8 % (1.0-10.0); NEUTROPHILS % (AUTO) 47.7 % (45.0-75.0); PLATELET COUNT 195 K/UL (150-450); RED BLOOD COUNT 4.31 M/UL (4.70-6.10); RED CELL DISTRIBUTION WIDTH 12.1 % (11.6-14.8)
[2016-06-19 07:38] LABS: ALANINE AMINOTRANSFERASE 26 U/L (3-41); ALBUMIN/GLOBULIN RATIO 1.3 (1.0-2.7); ANION GAP 15 (5-15); ASPARTATE AMINO TRANSFERASE 30 U/L (5-40); CALCIUM 8.6 mg/dL (8.6-10.2); CARBON DIOXIDE 25 mEQ/L (20-30); CHLORIDE 100 mEQ/L (98-107); CREATININE 1.1 mg/dL (0.7-1.2); GLOMERULAR FILTRATION RATE > 60 mL/min (>60); HEMOLYSIS 5; POTASSIUM 3.5 mEQ/L (3.4-4.9); SODIUM 140 mEQ/L (135-145); TOTAL PROTEIN 6.8 g/dL (6.6-8.7)
[2016-06-19 08:00] VITALS: BP 138/93
--- NOTE | 2016-06-19 08:14 | General Progress Note ---
Assessment/Plan Assessment/Plan (1) Crohn's Disease (2) Intractable abdominal pain (3) Lumbar DDD (4) Lumbar Spondylosis Pt will be going for MRI and will be continued on Fentanyl and Dilaudid. Pt was d/w Dr. Ramírez and he concurred. Subjective Date patient seen: Jun 19, 2016 Time patient seen: 07:15 - am Constitutional: Denies: chills, diaphoresis, fever, malaise, weakness HEENT: Reports: other, Denies: blurred vision, double vision, ear discharge, ear pain, eye pain, mouth pain, mouth swelling, nose congestion, nose pain, tearing, throat pain, throat swelling Cardiovascular: Denies: chest pain, edema, irregular heart rate, lightheadedness, palpitations, syncope Respiratory: Denies: SOB at rest, SOB with excertion, cough, orthopnea, shortness of breath, sputum, stridor, wheezing Gastrointestinal/Abdominal: Reports: abdominal pain, Denies: abdomen distended , black stools, blood in stool, constipated, diarrhea, difficulty swallowing, nausea, poor appetite, poor fluid intake, rectal bleeding, tarry stools, vomiting Genitourinary: Denies: burning, discharge, flank pain, frequency, hematuria, incontinence, pain, urgency Neurologic/Psychiatric: Denies: anxiety, depressed, emotional problems, headache, numbness, paresthesia, pre-existing deficit, seizure, tingling, tremors, weakness Endocrine: Denies: excessive sweating, flushing, increased hunger, increased thirst, increased urine, intolerance to cold, intolerance to heat, unexplained weight gain, unexplained weight loss Hematologic/Lymphatic: Denies: anemia, easy bleeding, easy bruising Allergies: Coded Allergies: DIPHENHYDRAMINE (Verified Allergy, Unknown, 06/17/16) LORAZEPAM (Verified Allergy, Unknown, 06/17/16) MORPHINE (Verified Allergy, Unknown, 06/17/16) Subjective Patient is comfortable on current medication regimen and is going for MRI later this morning. Objective Last 24 Hour Vital Signs Date Time Temp Pulse Resp B/P Pulse Ox O2 Delivery O2 Flow Rate FiO2 06/19/16 04:00 97.8 76 18 137/85 96 Room Air 06/19/16 00:00 98.1 72 20 151/99 94 Room Air 06/18/16 21:24 98.4 06/18/16 20:00 98.4 88 19 137/90 92 Room Air 06/18/16 18:15 98.1 06/18/16 17:05 97.9 84 18 141/97 96 Room Air 06/18/16 16:20 98.1 98 19 150/101 93 Room Air 06/18/16 12:20 98.3 06/18/16 08:49 98.3 54 17 119/84 95 Room Air Intake and Output 06/18/16 06/19/16 19:00 07:00 Intake Total 855 ml 615 ml Balance 855 ml 615 ml Intake Oral 480 ml 240 ml IV Total 375 ml 375 ml # Voids 1 Laboratory Tests 06/19/16 06:00: White Blood Count 5.0, Red Blood Count 4.31L, Hemoglobin 13.1L, Hematocrit 39.7L , Mean Corpuscular Volume 92, Mean Corpuscular Hemoglobin 30.3, Mean Corpuscular Hemoglobin Concent 32.9, Red Cell Distribution Width 12.1, Platelet Count 195, Mean Platelet Volume 7.2, Neutrophils (%) (Auto) 47.7, Lymphocytes (% ) (Auto) 30.8, Monocytes (%) (Auto) 14.8H, Eosinophils (%) (Auto) 4.8H, Basophils (%) (Auto) 1.9, Sodium Level 140, Potassium Level 3.5, Chloride Level 100, Carbon Dioxide Level 25, Anion Gap 15, Blood Urea Nitrogen 10, Creatinine 1.1, Estimat Glomerular Filtration Rate > 60, Glucose Level 84, Calcium Level 8.6, Total Bilirubin 0.3, Aspartate Amino Transf (AST/SGOT) 30, Alanine Aminotransferase (ALT/SGPT) 26, Alkaline Phosphatase 71, C-Reactive Protein, Quantitative 2.0H, Total Protein 6.8, Albumin 3.9, Globulin 2.9, Albumin/ Globulin Ratio 1.3 Height (Feet): 5 Height (Inches): 7.00 Weight (Pounds): 174 General Appearance: no apparent distress EENT: PERRL/EOMI, normal ENT inspection Neck: non-tender, normal alignment Cardiovascular: normal rate, regular rhythm Respiratory/Chest: lungs clear, normal breath sounds Abdomen: tender Extremities: non-tender Edema: no edema noted Arm (L), no edema noted Arm (R), no edema noted Leg (L), no edema noted Leg (R), no edema noted Pedal (L), no edema noted Pedal (R), no edema noted Generalized Neurologic: alert, responsive Skin: warm/dry MILAN MALLOY Jun 19, 2016 08:14
[2016-06-19] MEDS: Heparin 5000 units/ml inj SUBQ SCH ×2 (09:00→21:00)
--- NOTE | 2016-06-19 10:06 | General Progress Note ---
Assessment/Plan Problem List: (1) COPD (chronic obstructive pulmonary disease) ICD Codes: J44.9 - Chronic obstructive pulmonary disease, unspecified SNOMED: 84921757 (2) Crohns disease ICD Codes: K50.90 - Crohn's disease, unspecified, without complications SNOMED: 09186345, 434345884 Qualifiers: Qualified Codes: K50.919 - Crohn's disease, unspecified, with unspecified complications (3) Abdominal distention ICD Codes: R14.0 - Abdominal distension (gaseous) SNOMED: 17972842 Assessment/Plan KUB reviewed on regular diet fu CRP cholestyramine pain control Subjective ROS Limited/Unobtainable: Yes Constitutional: Reports: no symptoms HEENT: Reports: no symptoms Cardiovascular: Reports: no symptoms Respiratory: Reports: no symptoms Gastrointestinal/Abdominal: Reports: no symptoms Genitourinary: Reports: no symptoms Neurologic/Psychiatric: Reports: no symptoms Endocrine: Reports: no symptoms Allergies: Coded Allergies: DIPHENHYDRAMINE (Verified Allergy, Unknown, 06/17/16) LORAZEPAM (Verified Allergy, Unknown, 06/17/16) MORPHINE (Verified Allergy, Unknown, 06/17/16) Subjective wants regular diet had BM Objective Last 24 Hour Vital Signs Date Time Temp Pulse Resp B/P Pulse Ox O2 Delivery O2 Flow Rate FiO2 06/19/16 04:00 97.8 76 18 137/85 96 Room Air 06/19/16 00:00 98.1 72 20 151/99 94 Room Air 06/18/16 21:24 98.4 06/18/16 20:00 98.4 88 19 137/90 92 Room Air 06/18/16 18:15 98.1 06/18/16 17:05 97.9 84 18 141/97 96 Room Air 06/18/16 16:20 98.1 98 19 150/101 93 Room Air 06/18/16 12:20 98.3 Intake and Output 06/18/16 06/19/16 19:00 07:00 Intake Total 855 ml 615 ml Balance 855 ml 615 ml Intake Oral 480 ml 240 ml IV Total 375 ml 375 ml # Voids 1 Laboratory Tests 06/19/16 06:00: White Blood Count 5.0, Red Blood Count 4.31L, Hemoglobin 13.1L, Hematocrit 39.7L , Mean Corpuscular Volume 92, Mean Corpuscular Hemoglobin 30.3, Mean Corpuscular Hemoglobin Concent 32.9, Red Cell Distribution Width 12.1, Platelet Count 195, Mean Platelet Volume 7.2, Neutrophils (%) (Auto) 47.7, Lymphocytes (% ) (Auto) 30.8, Monocytes (%) (Auto) 14.8H, Eosinophils (%) (Auto) 4.8H, Basophils (%) (Auto) 1.9, Sodium Level 140, Potassium Level 3.5, Chloride Level 100, Carbon Dioxide Level 25, Anion Gap 15, Blood Urea Nitrogen 10, Creatinine 1.1, Estimat Glomerular Filtration Rate > 60, Glucose Level 84, Calcium Level 8.6, Total Bilirubin 0.3, Aspartate Amino Transf (AST/SGOT) 30, Alanine Aminotransferase (ALT/SGPT) 26, Alkaline Phosphatase 71, C-Reactive Protein, Quantitative 2.0H, Total Protein 6.8, Albumin 3.9, Globulin 2.9, Albumin/ Globulin Ratio 1.3 Procedure: XRAY Abdomen 1v Indication: Abdominal pain Technique: Supine view of the abdomen Comparison: none Findings: Considerable bowel gas is present. Suspect that most of this is in the ascending and transverse colon which is upper limits of normal in caliber but not frankly dilated. However, in the left lower quadrant and midabdomen there are also some dilated small bowel loops. No unusual masses or calcifications. Impression: Dilated small bowel loops. May reflect ileus or small bowel. The presence of considerable colon gas favors the former. Recommend followup radiographs, consider CT as clinically indicated Dr. Lott notified at the time of interpretation Height (Feet): 5 Height (Inches): 7.00 Weight (Pounds): 174 General Appearance: alert EENT: normal ENT inspection Neck: supple Cardiovascular: normal rate Respiratory/Chest: decreased breath sounds Abdomen: normal bowel sounds, non tender, soft Extremities: non-tender WIL DELACRUZ Jun 19, 2016 10:06
[2016-06-19] MEDS: Depakote 125mg Sprinkles ORAL SCH ×2 (10:26→21:24)
[2016-06-19] MEDS: Cholestyramine 4gm Pkt ORAL SCH ×2 (10:26→19:39)
[2016-06-19] MEDS: DULoxetine 30mg cap ORAL SCH (10:27)
[2016-06-19 12:00] VITALS: BP 135/90
[2016-06-19] MEDS: D5 1/2NS 1,000 ML IV SCH (12:00)
--- NOTE | 2016-06-19 12:28 | Consultation ---
DATE OF CONSULTATION: 06/18/2016 PAIN MANAGEMENT CONSULTATION CONSULTING PHYSICIAN: Whitney Ramírez M.D. REFERRING PHYSICIAN: Jose Lott D.O. PHYSICIAN POULTRY FARMER: Perla Saeed CHIEF COMPLAINT: Abdominal pain. HISTORY OF PRESENT ILLNESS: This is a 55-year-old male who is being seen for initial comprehensive pain management consultation here in [facility] on the Medical/Surgical floor. The patient reports that he has been having abdominal pain for about many years. It is currently chronic pain and rated as 10/10, least was 4/10. The patient is on Fentanyl 100 mcg every 72 hours and Dilaudid 3 mg IM every 3 hours as needed for severe pain, which [facility]. He is describing the pain as a sharp pain associated with eating. The patient also has low back pain, which he tells me is due to vertebral issues. No recent MRI has been done of the lumbar spine. The patient has been maintained on narcotics for many years and also at one point was on Dilaudid subQ pump and at this time the patient is on the Fentanyl 100 mcg every 72 hours as well as on Dilaudid 2 mg IV every 2 hours as needed for pain and states that the 3 mg IM in most efficient in reduction of pain. I had a long discussion with the patient about intrathecal pump, which can be done as an outpatient. I explained to the patient that the medication he is on and the tolerance and dependency that occurs on these medications and we have explained intrathecal pump at this time and I discussed with the patient the option of an MRI of the lumbar spine. PAST MEDICAL HISTORY: Hypertension,history of stroke, COPD, and low back pain. PAST SURGICAL HISTORY: Internal J-pouch and revision. SOCIAL HISTORY: No recent history of smoking or alcohol abuse. Denies IV drug abuse. ALLERGIES: Morphine and Ativan. REVIEW OF SYSTEMS: Denies rash, fever, chills, sweating, dizziness, drowsiness, blurred vision, sore throat, or change in hearing or weight. No nausea, vomiting, or blood in the stool, or urine. No bowel or bladder incontinence. No dysuria. He is complaining of abdominal pain. PHYSICAL EXAMINATION: GENERAL: Alert and oriented x3. VITAL SIGNS: Blood pressure 119/84, heart rate 54, respiratory rate is 17, and temperature 98 degrees Fahrenheit. Height is 5 feet 7 inches and weight is 180 pounds. HEENT: PERRLA. NECK: Range of motion is full in all directions. No tenderness to paracervical muscles. No adenopathy. LUNGS: Clear. HEART: S1 and S1 regular. ABDOMEN: Tenderness to palpation BACK: Range of motion is decreased in flexion and extension with tenderness to paraspinal muscles. No tenderness to trapezius or rhomboid muscles. EXTREMITIES: Range of motion is full in all directions. Motor is intact. No cyanosis. No clubbing. No edema. Sensory is intact. Reflexes are not obtainable. No adenopathy. Lower extremity range of motion is decreased due to the patient's general condition. Motor is reduced. No cyanosis. No clubbing. Sensory is intact. Reflexes are not obtainable. No adenopathy. ASSESSMENT AND PLAN: This is a 55-year-old male with intractable abdominal pain, chronic disease, Lumbar DDD, Lumbar spondylosis. The patient will be continued on the Fentanyl 100 mcg patch every 72 hours. We will change the Dilaudid to 3 mg IM every 3 hours as needed for severe pain. Discussed with the patient about intrathecal pump. We will order an MRI of the lumbar spine without contrast to further evaluate the pathology of the lumbar spine. The patient was discussed with Dr. Ramírez and Dr. Ramírez concurred. We will follow the patient. Thank you very much for the courtesy of this consultation. Whitney Ramírez M.D. KIMBERLI Saeed DR: JULIOCESAR JOB#: [id number] CC: RENA
--- NOTE | 2016-06-19 12:55 | General Progress Note ---
Assessment/Plan Problem List: (1) Crohns disease ICD Codes: K50.90 - Crohn's disease, unspecified, without complications SNOMED: 88093057, 755844504 Qualifiers: Qualified Codes: K50.919 - Crohn's disease, unspecified, with unspecified complications (2) Intractable abdominal pain ICD Codes: R10.9 - Unspecified abdominal pain SNOMED: 67031177, 043251520 (3) COPD (chronic obstructive pulmonary disease) ICD Codes: J44.9 - Chronic obstructive pulmonary disease, unspecified SNOMED: 20903926 (4) Abdominal distention ICD Codes: R14.0 - Abdominal distension (gaseous) SNOMED: 31069103 Status: stable, progressing, tolerating diet Assessment/Plan ot pt diet eval cbc bmp am pain control gi f/u Subjective Constitutional: Reports: weakness Allergies: Coded Allergies: DIPHENHYDRAMINE (Verified Allergy, Unknown, 06/17/16) LORAZEPAM (Verified Allergy, Unknown, 06/17/16) MORPHINE (Verified Allergy, Unknown, 06/17/16) All Systems: reviewed and negative except above Subjective sleepy calm Objective Last 24 Hour Vital Signs Date Time Temp Pulse Resp B/P Pulse Ox O2 Delivery O2 Flow Rate FiO2 06/19/16 12:00 98.7 92 19 135/90 95 Room Air 06/19/16 11:01 97.8 06/19/16 11:01 97.8 06/19/16 10:00 97.8 06/19/16 08:00 98.3 90 20 138/93 94 Room Air 06/19/16 04:00 97.8 76 18 137/85 96 Room Air 06/19/16 00:00 98.1 72 20 151/99 94 Room Air 06/18/16 20:00 98.4 88 19 137/90 92 Room Air 06/18/16 17:05 97.9 84 18 141/97 96 Room Air 06/18/16 16:20 98.1 98 19 150/101 93 Room Air Intake and Output 06/18/16 06/19/16 19:00 07:00 Intake Total 855 ml 690 ml Balance 855 ml 690 ml Intake Oral 480 ml 240 ml IV Total 375 ml 450 ml # Voids 1 Laboratory Tests 06/19/16 06:00: White Blood Count 5.0, Red Blood Count 4.31L, Hemoglobin 13.1L, Hematocrit 39.7L , Mean Corpuscular Volume 92, Mean Corpuscular Hemoglobin 30.3, Mean Corpuscular Hemoglobin Concent 32.9, Red Cell Distribution Width 12.1, Platelet Count 195, Mean Platelet Volume 7.2, Neutrophils (%) (Auto) 47.7, Lymphocytes (% ) (Auto) 30.8, Monocytes (%) (Auto) 14.8H, Eosinophils (%) (Auto) 4.8H, Basophils (%) (Auto) 1.9, Sodium Level 140, Potassium Level 3.5, Chloride Level 100, Carbon Dioxide Level 25, Anion Gap 15, Blood Urea Nitrogen 10, Creatinine 1.1, Estimat Glomerular Filtration Rate > 60, Glucose Level 84, Calcium Level 8.6, Total Bilirubin 0.3, Aspartate Amino Transf (AST/SGOT) 30, Alanine Aminotransferase (ALT/SGPT) 26, Alkaline Phosphatase 71, C-Reactive Protein, Quantitative 2.0H, Total Protein 6.8, Albumin 3.9, Globulin 2.9, Albumin/ Globulin Ratio 1.3 Height (Feet): 5 Height (Inches): 7.00 Weight (Pounds): 174 General Appearance: alert EENT: normal ENT inspection Neck: normal alignment Cardiovascular: normal peripheral pulses, normal rate, regular rhythm Respiratory/Chest: chest wall non-tender, lungs clear, normal breath sounds Abdomen: normal bowel sounds, non tender, soft Extremities: normal inspection Edema: no edema noted Arm (L), no edema noted Arm (R), no edema noted Leg (L), no edema noted Leg (R), no edema noted Pedal (L), no edema noted Pedal (R), no edema noted Generalized Neurologic: responsive, motor weakness Skin: normal pigmentation, warm/dry JG SALMON Jun 19, 2016 12:55
[2016-06-19 16:00] VITALS: BP 145/87
[2016-06-19 20:00] VITALS: BP 129/82
[2016-06-19] MEDS: TraZODone 100mg tab ORAL SCH (21:24)
[2016-06-19] MEDS: Amitriptyline 100mg tab ORAL SCH (21:24)
--- NOTE | 2016-06-19 22:13 | Pulmonology Progress Note ---
Assessment/Plan Problems: (1) COPD (chronic obstructive pulmonary disease) (2) Abdominal distention (3) Crohns disease (4) Intractable abdominal pain Assessment/Plan pain consult appreciated low residual diet Iv fluids pain management respiratory treatment GI evaluation Subjective ROS Limited/Unobtainable: No Constitutional: Reports: anorexia, fatigue Neurologic: Reports: confusion, weakness Allergies: Coded Allergies: DIPHENHYDRAMINE (Verified Allergy, Unknown, 06/17/16) LORAZEPAM (Verified Allergy, Unknown, 06/17/16) MORPHINE (Verified Allergy, Unknown, 06/17/16) Objective Last 24 Hour Vital Signs Date Time Temp Pulse Resp B/P Pulse Ox O2 Delivery O2 Flow Rate FiO2 06/19/16 20:38 97.7 06/19/16 20:05 97.7 06/19/16 20:00 97.7 74 18 129/82 90 Room Air 06/19/16 16:00 97.7 84 20 145/87 90 Room Air 06/19/16 12:00 98.7 92 19 135/90 95 Room Air 06/19/16 11:01 97.8 06/19/16 08:00 98.3 90 20 138/93 94 Room Air 06/19/16 04:00 97.8 76 18 137/85 96 Room Air 06/19/16 00:00 98.1 72 20 151/99 94 Room Air Intake and Output 06/18/16 06/19/16 19:00 07:00 Intake Total 855 ml 690 ml Balance 855 ml 690 ml Intake Oral 480 ml 240 ml IV Total 375 ml 450 ml # Voids 1 General Appearance: no acute distress HEENT: normocephalic, atraumatic, PERRL Respiratory/Chest: chest wall non-tender, decreased breath sounds, accessory muscle use, rhonchi Cardiovascular: normal peripheral pulses, normal rate, regular rhythm Abdomen: absent bowel sounds, distended, guarding, tender, rebound tenderness, mass, hepatomegaly Genitourinary: normal external genitalia Extremities: no cyanosis Skin: no rash, no lesions Neurologic/Psychiatric: funnel coater II-XII grossly normal, no motor/sensory deficits Laboratory Tests 06/19/16 06:00: White Blood Count 5.0, Red Blood Count 4.31L, Hemoglobin 13.1L, Hematocrit 39.7L , Mean Corpuscular Volume 92, Mean Corpuscular Hemoglobin 30.3, Mean Corpuscular Hemoglobin Concent 32.9, Red Cell Distribution Width 12.1, Platelet Count 195, Mean Platelet Volume 7.2, Neutrophils (%) (Auto) 47.7, Lymphocytes (% ) (Auto) 30.8, Monocytes (%) (Auto) 14.8H, Eosinophils (%) (Auto) 4.8H, Basophils (%) (Auto) 1.9, Sodium Level 140, Potassium Level 3.5, Chloride Level 100, Carbon Dioxide Level 25, Anion Gap 15, Blood Urea Nitrogen 10, Creatinine 1.1, Estimat Glomerular Filtration Rate > 60, Glucose Level 84, Calcium Level 8.6, Total Bilirubin 0.3, Aspartate Amino Transf (AST/SGOT) 30, Alanine Aminotransferase (ALT/SGPT) 26, Alkaline Phosphatase 71, C-Reactive Protein, Quantitative 2.0H, Total Protein 6.8, Albumin 3.9, Globulin 2.9, Albumin/ Globulin Ratio 1.3 Current Medications Medications (Trade) Dose Ordered Sig/William Route PRN Reason Start Time Stop Time Status Last Admin Dose Admin Acetaminophen (Tylenol) 650 mg Q4H PRN ORAL fever 06/17/16 20:00 07/17/16 19:59 Al Hydroxide/Mg Hydroxide (Mylanta II) 30 ml Q6H PRN ORAL dyspepsia 06/17/16 20:00 07/17/16 19:59 Amitriptyline HCl (Elavil) 100 mg BEDTIME ORAL 06/18/16 21:00 07/18/16 20:59 06/19/16 21:24 Cholestyramine Resin (Questran) 4 gm BID ORAL 06/18/16 18:00 07/18/16 17:59 06/19/16 19:39 Dextrose (Dextrose 50%) STAT PRN IV Hypoglycemia 06/17/16 20:00 07/17/16 19:59 Dextrose/Sodium Chloride (D5 0.45% NS) 1,000 ml @ 75 mls/hr [id number] IV 06/17/16 20:00 07/17/16 19:59 06/18/16 22:35 Diazepam (Valium) 5 mg Q12H PRN ORAL ANXIETY 06/18/16 07:45 06/25/16 07:44 06/19/16 10:38 Divalproex Sodium (Depakote Sprinkles) 125 mg Q12HR ORAL 06/18/16 22:30 07/18/16 22:29 06/19/16 21:24 Duloxetine HCl (Cymbalta) 30 mg DAILY ORAL 06/18/16 09:00 07/18/16 08:59 06/19/16 10:27 Fentanyl (Duragesic) 1 patch Q72H TDERMAL 06/19/16 09:00 06/26/16 08:59 06/19/16 10:31 Gabapentin (Neurontin) 600 mg THREE TIMES A DAY ORAL 06/18/16 09:00 07/18/16 08:59 06/19/16 19:39 Heparin Sodium (Porcine) (Heparin 5000 units/ml) 5,000 units EVERY 12 HOURS SUBQ 06/17/16 21:00 07/17/16 20:59 06/18/16 08:30 Hydromorphone HCl (Dilaudid) 3 mg Q3H PRN IM For Pain 06/18/16 15:00 06/25/16 14:59 06/19/16 19:37 Mesalamine (Asacol) 800 mg THREE TIMES A DAY ORAL 06/18/16 14:00 07/18/16 13:59 06/19/16 19:38 Nitroglycerin (Ntg) 0.4 mg Q5M X 3 DOSES PRN SL Prn Chest Pain 06/17/16 20:00 07/17/16 19:59 Ondansetron HCl (Zofran) 4 mg Q6H PRN IVP Nausea & Vomiting 06/17/16 20:00 07/17/16 19:59 Polyethylene Glycol (Miralax) 17 gm HSPRN PRN ORAL Constipation 06/17/16 20:00 07/17/16 19:59 Risperidone (RisperDAL) 1 mg DAILY ORAL 06/18/16 09:00 07/18/16 08:59 06/19/16 10:27 Trazodone HCl (Desyrel) 150 mg BEDTIME ORAL 06/18/16 21:00 07/18/16 20:59 06/19/16 21:24 KHALIF RILEY Jun 19, 2016 22:13
[2016-06-20] MEDS: D5 1/2NS 1,000 ML IV SCH ×3 (01:20→19:42)
[2016-06-20 04:00] VITALS: BP 117/76
[2016-06-20 07:18] LABS: ANION GAP 16 (5-15); CALCIUM 8.6 mg/dL (8.6-10.2); CARBON DIOXIDE 26 mEQ/L (20-30); CHLORIDE 100 mEQ/L (98-107); GLOMERULAR FILTRATION RATE > 60 mL/min (>60); HEMOLYSIS 8; SODIUM 142 mEQ/L (135-145)
[2016-06-20 08:00] VITALS: BP 127/80
[2016-06-20] MEDS: Cholestyramine 4gm Pkt ORAL SCH ×2 (08:15→18:00)
[2016-06-20] MEDS: Heparin 5000 units/ml inj SUBQ SCH ×2 (08:16→19:52)
--- NOTE | 2016-06-20 08:27 | Diagnostic Imaging Report ---
Indication: Back pain Technique: MRI examination of the Lumbar spine was performed in a 1.5 Amanda magnet. Sequences obtained include sagittal and axial T1 and T2 fast spin echo, and sagittal STIR. No IV gadolinium was given Comparison: none Findings: There is an old compression fracture deformity of the superior endplate of L3. There is no associated bone marrow edema to suggest this is new. No significant malalignment is identified. This level is notable for facet arthropathy which is characterized by hypertrophy and irregularity of the joint space. There is no evidence of foraminal or central stenosis. There is mild anterolisthesis present at L5-S1. There is associated with narrowing and desiccation of intervertebral disc. Bilateral pars interarticularis defects at L5 noted. Moderate facet arthropathy noted at this level. There is associated moderate bilateral foraminal stenosis. There is no significant narrowing the central canal or lateral recess. L4-5 demonstrates facet arthropathy. The disc is mildly narrowed. There is some encroachment of the neuroforamina bilaterally due to facet disease. L3-4 is unremarkable. L1-2 and L2-3 are unremarkable. Conus medullaris is seen opposite L1 and is normal in appearance. The T1 sagittal sequence is limited by motion. Partially imaged cyst suspected in the posterior part of the left kidney. Both sacroiliac joints are fused. Impression: Grade 1 spondylolisthesis at L5-S1. This is associated with bilateral L5 spondylolysis and moderate neural foraminal stenosis and impingement of the exiting L5 nerve roots bilaterally. Degenerative disease at L4-5. Mild foraminal stenosis. Old superior endplate compression fracture of L3 vertebra. Multilevel facet arthropathy. Fused sacroiliac joints. Partially imaged suspected cyst involving the left kidney. Multilevel facet arthropathy.
--- NOTE | 2016-06-20 08:28 | General Progress Note ---
Assessment/Plan Assessment/Plan (1) Crohn's Disease (2) Intractable abdominal pain (3) Lumbar DDD (4) Lumbar Spondylosis Pt will be continued on Fentanyl and Dilaudid. Pt was d/w Dr. Ramírez and he concurred. Subjective Date patient seen: Jun 20, 2016 Time patient seen: 07:15 - am Allergies: Coded Allergies: DIPHENHYDRAMINE (Verified Allergy, Unknown, 06/17/16) LORAZEPAM (Verified Allergy, Unknown, 06/17/16) MORPHINE (Verified Allergy, Unknown, 06/17/16) Subjective Constitutional: Denies: chills, diaphoresis, fever, malaise, weakness HEENT: Reports: other, Denies: blurred vision, double vision, ear discharge, ear pain, eye pain, mouth pain, mouth swelling, nose congestion, nose pain, tearing, throat pain, throat swelling Cardiovascular: Denies: chest pain, edema, irregular heart rate, lightheadedness, palpitations, syncope Respiratory: Denies: SOB at rest, SOB with excertion, cough, orthopnea, shortness of breath, sputum, stridor, wheezing Gastrointestinal/Abdominal: Reports: abdominal pain, Denies: abdomen distended , black stools, blood in stool, constipated, diarrhea, difficulty swallowing, nausea, poor appetite, poor fluid intake, rectal bleeding, tarry stools, vomiting Genitourinary: Denies: burning, discharge, flank pain, frequency, hematuria, incontinence, pain, urgency Neurologic/Psychiatric: Denies: anxiety, depressed, emotional problems, headache, numbness, paresthesia, pre-existing deficit, seizure, tingling, tremors, weakness Endocrine: Denies: excessive sweating, flushing, increased hunger, increased thirst, increased urine, intolerance to cold, intolerance to heat, unexplained weight gain, unexplained weight loss Hematologic/Lymphatic: Denies: anemia, easy bleeding, easy bruising Subjective Pain is tolerated well on the medications. MRI was reviewed. He continues to think about intra thecal pump. Objective Last 24 Hour Vital Signs Date Time Temp Pulse Resp B/P Pulse Ox O2 Delivery O2 Flow Rate FiO2 06/20/16 04:00 97.9 82 20 117/76 97 Room Air 06/19/16 23:12 97.7 06/19/16 20:38 97.7 06/19/16 20:00 97.7 74 18 129/82 90 Room Air 06/19/16 16:00 97.7 84 20 145/87 90 Room Air 06/19/16 12:00 98.7 92 19 135/90 95 Room Air 06/19/16 11:01 97.8 Intake and Output 06/19/16 06/20/16 19:00 07:00 Intake Total 1185 ml 225 ml Output Total 350 ml Balance 835 ml 225 ml Intake Oral 660 ml IV Total 525 ml 225 ml Output Urine Total 350 ml # Voids 2 # Bowel Movements 1 Laboratory Tests 06/20/16 06:00: Sodium Level 142, Potassium Level 4.0, Chloride Level 100, Carbon Dioxide Level 26, Anion Gap 16H, Blood Urea Nitrogen 9, Creatinine 1.0, Estimat Glomerular Filtration Rate > 60, Glucose Level 89, Calcium Level 8.6 Height (Feet): 5 Height (Inches): 7.00 Weight (Pounds): 174 Objective General Appearance: no apparent distress EENT: PERRL/EOMI, normal ENT inspection Neck: non-tender, normal alignment Cardiovascular: normal rate, regular rhythm Respiratory/Chest: lungs clear, normal breath sounds Abdomen: tender Extremities: non-tender Edema: no edema noted Arm (L), no edema noted Arm (R), no edema noted Leg (L), no edema noted Leg (R), no edema noted Pedal (L), no edema noted Pedal (R), no edema noted Generalized Neurologic: alert, responsive Skin: warm/dry Procedure: MRI L Spine no Contrast Findings: There is an old compression fracture deformity of the superior endplate of L3. There is no associated bone marrow edema to suggest this is new. No significant malalignment is identified. This level is notable for facet arthropathy which is characterized by hypertrophy and irregularity of the joint space. There is no evidence of foraminal or central stenosis. There is mild anterolisthesis present at L5-S1. There is associated with narrowing and desiccation of intervertebral disc. Bilateral pars interarticularis defects at L5 noted. Moderate facet arthropathy noted at this level. There is associated moderate bilateral foraminal stenosis. There is no significant narrowing the central canal or lateral recess. L4-5 demonstrates facet arthropathy. The disc is mildly narrowed. There is some encroachment of the neuroforamina bilaterally due to facet disease. L3-4 is unremarkable. L1-2 and L2-3 are unremarkable. Conus medullaris is seen opposite L1 and is normal in appearance. The T1 sagittal sequence is limited by motion. Partially imaged cyst suspected in the posterior part of the left kidney. Both sacroiliac joints are fused. MILAN MALLOY. Jun 20, 2016 08:28
[2016-06-20] MEDS: Depakote 125mg Sprinkles ORAL SCH ×2 (08:36→20:11)
[2016-06-20] MEDS: DULoxetine 30mg cap ORAL SCH (08:36)
[2016-06-20 09:35] LABS: BASOPHILS % (AUTO) 1.1 % (0.0-2.0); EOSINOPHILS % (AUTO) 1.6 % (0.0-3.0); LYMPHOCYTES % (AUTO) 22.9 % (20.0-45.0); MEAN CORPUSCULAR HGB CONC 32.4 G/DL (32.0-36.0); MEAN CORPUSCULAR VOLUME 93 FL (80-99); MEAN PLATELET VOLUME 6.7 FL (6.5-10.1); NEUTROPHILS % (AUTO) 59.4 % (45.0-75.0); PLATELET COUNT 224 K/UL (150-450); RED BLOOD COUNT 4.63 M/UL (4.70-6.10); RED CELL DISTRIBUTION WIDTH 12.3 % (11.6-14.8)
[2016-06-20 12:00] VITALS: BP 99/63
--- NOTE | 2016-06-20 12:58 | General Progress Note ---
Assessment/Plan Problem List: (1) Crohns disease ICD Codes: K50.90 - Crohn's disease, unspecified, without complications SNOMED: 14163817, [id number] Qualifiers: Qualified Codes: K50.919 - Crohn's disease, unspecified, with unspecified complications (2) Intractable abdominal pain ICD Codes: R10.9 - Unspecified abdominal pain SNOMED: 66031522, 535960522 (3) COPD (chronic obstructive pulmonary disease) ICD Codes: J44.9 - Chronic obstructive pulmonary disease, unspecified SNOMED: 83340403 (4) Abdominal distention ICD Codes: R14.0 - Abdominal distension (gaseous) SNOMED: 39695162 Status: stable, progressing, tolerating diet Assessment/Plan ot pt diet eval dc if clear by gi and pain Subjective Constitutional: Reports: weakness Allergies: Coded Allergies: DIPHENHYDRAMINE (Verified Allergy, Unknown, 06/17/16) LORAZEPAM (Verified Allergy, Unknown, 06/17/16) MORPHINE (Verified Allergy, Unknown, 06/17/16) All Systems: reviewed and negative except above Subjective sleepy calm Objective Last 24 Hour Vital Signs Date Time Temp Pulse Resp B/P Pulse Ox O2 Delivery O2 Flow Rate FiO2 06/20/16 08:40 97.9 06/20/16 08:40 97.9 06/20/16 08:00 97.9 80 20 127/80 95 Room Air 06/20/16 04:00 97.9 82 20 117/76 97 Room Air 06/19/16 20:00 97.7 74 18 129/82 90 Room Air 06/19/16 16:00 97.7 84 20 145/87 90 Room Air Intake and Output 06/19/16 06/20/16 19:00 07:00 Intake Total 1185 ml 300 ml Output Total 350 ml Balance 835 ml 300 ml Intake Oral 660 ml IV Total 525 ml 300 ml Output Urine Total 350 ml # Voids 2 # Bowel Movements 1 Laboratory Tests 06/20/16 06:00: Sodium Level 142, Potassium Level 4.0, Chloride Level 100, Carbon Dioxide Level 26, Anion Gap 16H, Blood Urea Nitrogen 9, Creatinine 1.0, Estimat Glomerular Filtration Rate > 60, Glucose Level 89, Calcium Level 8.6 06/20/16 08:30: White Blood Count 6.0, Red Blood Count 4.63L, Hemoglobin 13.9L, Hematocrit 42.9 , Mean Corpuscular Volume 93, Mean Corpuscular Hemoglobin 30.0, Mean Corpuscular Hemoglobin Concent 32.4, Red Cell Distribution Width 12.3, Platelet Count 224, Mean Platelet Volume 6.7, Neutrophils (%) (Auto) 59.4, Lymphocytes (% ) (Auto) 22.9, Monocytes (%) (Auto) 15.0H, Eosinophils (%) (Auto) 1.6, Basophils (%) (Auto) 1.1 Height (Feet): 5 Height (Inches): 7.00 Weight (Pounds): 174 General Appearance: alert EENT: normal ENT inspection Neck: normal alignment Cardiovascular: normal peripheral pulses, normal rate, regular rhythm Respiratory/Chest: chest wall non-tender, lungs clear, normal breath sounds Abdomen: normal bowel sounds, non tender, soft Extremities: normal inspection Edema: no edema noted Arm (L), no edema noted Arm (R), no edema noted Leg (L), no edema noted Leg (R), no edema noted Pedal (L), no edema noted Pedal (R), no edema noted Generalized Neurologic: responsive, motor weakness Skin: normal pigmentation, warm/dry JG SALMON Jun 20, 2016 12:58
--- NOTE | 2016-06-20 15:17 | Infectious Diseases Prog Note ---
Assessment/Plan Problems: (1) MRSA (methicillin resistant staph aureus) culture positive Assessment & Plan: on bactroban for 5 days (2) COPD (chronic obstructive pulmonary disease) Assessment & Plan: continue nebulizer treatment , pulmonary is following (3) Crohns disease Assessment & Plan: continue meds, further management as per GI Subjective Allergies: Coded Allergies: DIPHENHYDRAMINE (Verified Allergy, Unknown, 06/17/16) LORAZEPAM (Verified Allergy, Unknown, 06/17/16) MORPHINE (Verified Allergy, Unknown, 06/17/16) Objective Vital Signs Last 24 Hour Vital Signs Date Time Temp Pulse Resp B/P Pulse Ox O2 Delivery O2 Flow Rate FiO2 06/20/16 13:05 97.9 06/20/16 13:05 97.9 06/20/16 12:00 97.9 96 20 99/63 97 Room Air 06/20/16 08:00 97.9 80 20 127/80 95 Room Air 06/20/16 04:00 97.9 82 20 117/76 97 Room Air 06/19/16 20:00 97.7 74 18 129/82 90 Room Air 06/19/16 16:00 97.7 84 20 145/87 90 Room Air Height (Feet): 5 Height (Inches): 7.00 Weight (Pounds): 174 Microbiology Date/Time Source Procedure Growth Status 06/17/16 22:27 Nasal Nares MRSA Culture - Final Staphylococcus Aureus - Mrsa Complete 06/17/16 22:27 Rectal Mucosa VRE Culture - Final NO VANCOMYCIN RESISTANT ENTEROCOCCUS ... Complete Laboratory Tests Test 06/20/16 06:00 06/20/16 08:30 Sodium Level 142 mEQ/L (135-145) Potassium Level 4.0 mEQ/L (3.4-4.9) Chloride Level 100 mEQ/L (98-107) Carbon Dioxide Level 26 mEQ/L (20-30) Anion Gap 16 (5-15) H Blood Urea Nitrogen 9 mg/dL (7-23) Creatinine 1.0 mg/dL (0.7-1.2) Estimat Glomerular Filtration Rate > 60 mL/min (>60) Glucose Level 89 mg/dL (74-106) Calcium Level 8.6 mg/dL (8.6-10.2) White Blood Count 6.0 K/UL (4.8-10.8) Red Blood Count 4.63 M/UL (4.70-6.10) L Hemoglobin 13.9 G/DL (14.2-18.0) L Hematocrit 42.9 % (42.0-52.0) Mean Corpuscular Volume 93 FL (80-99) Mean Corpuscular Hemoglobin 30.0 PG (27.0-31.0) Mean Corpuscular Hemoglobin Concent 32.4 G/DL (32.0-36.0) Red Cell Distribution Width 12.3 % (11.6-14.8) Platelet Count 224 K/UL (150-450) Mean Platelet Volume 6.7 FL (6.5-10.1) Neutrophils (%) (Auto) 59.4 % (45.0-75.0) Lymphocytes (%) (Auto) 22.9 % (20.0-45.0) Monocytes (%) (Auto) 15.0 % (1.0-10.0) H Eosinophils (%) (Auto) 1.6 % (0.0-3.0) Basophils (%) (Auto) 1.1 % (0.0-2.0) Current Medications Medications (Trade) Dose Ordered Sig/William Route PRN Reason Start Time Stop Time Status Last Admin Dose Admin Acetaminophen (Tylenol) 650 mg Q4H PRN ORAL fever 06/17/16 20:00 07/17/16 19:59 Al Hydroxide/Mg Hydroxide (Mylanta II) 30 ml Q6H PRN ORAL dyspepsia 06/17/16 20:00 07/17/16 19:59 Amitriptyline HCl (Elavil) 100 mg BEDTIME ORAL 06/18/16 21:00 07/18/16 20:59 06/19/16 21:24 Cholestyramine Resin (Questran) 4 gm BID ORAL 06/18/16 18:00 07/18/16 17:59 06/19/16 19:39 Dextrose (Dextrose 50%) STAT PRN IV Hypoglycemia 06/17/16 20:00 07/17/16 19:59 Dextrose/Sodium Chloride (D5 0.45% NS) 1,000 ml @ 75 mls/hr [id number] IV 06/17/16 20:00 07/17/16 19:59 06/20/16 01:20 Diazepam (Valium) 5 mg Q12H PRN ORAL ANXIETY 06/18/16 07:45 06/25/16 07:44 06/20/16 08:36 Divalproex Sodium (Depakote Sprinkles) 125 mg Q12HR ORAL 06/18/16 22:30 07/18/16 22:29 06/20/16 08:36 Duloxetine HCl (Cymbalta) 30 mg DAILY ORAL 06/18/16 09:00 07/18/16 08:59 06/20/16 08:36 Fentanyl (Duragesic) 1 patch Q72H TDERMAL 06/19/16 09:00 06/26/16 08:59 06/19/16 10:31 Gabapentin (Neurontin) 600 mg THREE TIMES A DAY ORAL 06/18/16 09:00 07/18/16 08:59 06/20/16 12:34 Heparin Sodium (Porcine) (Heparin 5000 units/ml) 5,000 units EVERY 12 HOURS SUBQ 06/17/16 21:00 07/17/16 20:59 06/18/16 08:30 Hydromorphone HCl (Dilaudid) 3 mg Q4HR PRN IM For Pain 06/20/16 17:00 06/27/16 16:59 Mesalamine (Asacol) 800 mg THREE TIMES A DAY ORAL 06/18/16 14:00 07/18/16 13:59 06/20/16 12:34 Mupirocin (Bactroban Oint) 1 applic THREE TIMES A DAY TOPIC 06/20/16 15:30 06/25/16 09:01 Nitroglycerin (Ntg) 0.4 mg Q5M X 3 DOSES PRN SL Prn Chest Pain 06/17/16 20:00 07/17/16 19:59 Ondansetron HCl (Zofran) 4 mg Q6H PRN IVP Nausea & Vomiting 06/17/16 20:00 07/17/16 19:59 Polyethylene Glycol (Miralax) 17 gm HSPRN PRN ORAL Constipation 06/17/16 20:00 07/17/16 19:59 Risperidone (RisperDAL) 1 mg DAILY ORAL 06/18/16 09:00 07/18/16 08:59 06/20/16 08:36 Trazodone HCl (Desyrel) 150 mg BEDTIME ORAL 06/18/16 21:00 07/18/16 20:59 06/19/16 21:24 Zo Camacho M.D. Jun 20, 2016 15:17
[2016-06-20] MEDS ORDERED: QUESTRAN POWDE378 GM ORAL (15:34)
[2016-06-20] MEDS ORDERED: CHOLESTYRAMINE R5 GM MC (15:34)
[2016-06-20] MEDS ORDERED: DILAUDID4 MG IM (15:34)
[2016-06-20] MEDS ORDERED: NITROGLYCERIN0.4 MG SL (15:39)
[2016-06-20] MEDS ORDERED: MUPIROCIN22 GM TOPIC (15:39)
[2016-06-20] MEDS ORDERED: MIRALAX17 G2 ORAL (15:39)
[2016-06-20 16:00] VITALS: BP 135/83
[2016-06-20 20:00] VITALS: BP 141/79
[2016-06-20] MEDS: Amitriptyline 100mg tab ORAL SCH (20:10)
[2016-06-20] MEDS: TraZODone 100mg tab ORAL SCH (20:11)
--- NOTE | 2016-06-20 21:08 | Cardiology Progress Note ---
Assessment/Plan Assessment/Plan The patient is seen and examined, full consult note will be dictated. Objective Last 24 Hour Vital Signs Date Time Temp Pulse Resp B/P Pulse Ox O2 Delivery O2 Flow Rate FiO2 06/20/16 16:00 97.0 86 20 135/83 99 Room Air 06/20/16 13:05 97.9 06/20/16 13:05 97.9 06/20/16 12:00 97.9 96 20 99/63 97 Room Air 06/20/16 08:00 97.9 80 20 127/80 95 Room Air 06/20/16 04:00 97.9 82 20 117/76 97 Room Air Intake and Output 06/19/16 06/20/16 19:00 07:00 Intake Total 1185 ml 300 ml Output Total 350 ml Balance 835 ml 300 ml Intake Oral 660 ml IV Total 525 ml 300 ml Output Urine Total 350 ml # Voids 2 # Bowel Movements 1 Laboratory Tests Test 06/20/16 06:00 06/20/16 08:30 Sodium Level 142 mEQ/L (135-145) Potassium Level 4.0 mEQ/L (3.4-4.9) Chloride Level 100 mEQ/L (98-107) Carbon Dioxide Level 26 mEQ/L (20-30) Anion Gap 16 (5-15) H Blood Urea Nitrogen 9 mg/dL (7-23) Creatinine 1.0 mg/dL (0.7-1.2) Estimat Glomerular Filtration Rate > 60 mL/min (>60) Glucose Level 89 mg/dL (74-106) Calcium Level 8.6 mg/dL (8.6-10.2) White Blood Count 6.0 K/UL (4.8-10.8) Red Blood Count 4.63 M/UL (4.70-6.10) L Hemoglobin 13.9 G/DL (14.2-18.0) L Hematocrit 42.9 % (42.0-52.0) Mean Corpuscular Volume 93 FL (80-99) Mean Corpuscular Hemoglobin 30.0 PG (27.0-31.0) Mean Corpuscular Hemoglobin Concent 32.4 G/DL (32.0-36.0) Red Cell Distribution Width 12.3 % (11.6-14.8) Platelet Count 224 K/UL (150-450) Mean Platelet Volume 6.7 FL (6.5-10.1) Neutrophils (%) (Auto) 59.4 % (45.0-75.0) Lymphocytes (%) (Auto) 22.9 % (20.0-45.0) Monocytes (%) (Auto) 15.0 % (1.0-10.0) H Eosinophils (%) (Auto) 1.6 % (0.0-3.0) Basophils (%) (Auto) 1.1 % (0.0-2.0) Microbiology Date/Time Source Procedure Growth Status 06/17/16 22:27 Nasal Nares MRSA Culture - Final Staphylococcus Aureus - Mrsa Complete 06/17/16 22:27 Rectal Mucosa VRE Culture - Final NO VANCOMYCIN RESISTANT ENTEROCOCCUS ... Complete DANNIELLE WARD Jun 20, 2016 21:08
--- NOTE | 2016-06-20 22:48 | Consultation ---
DATE OF CONSULTATION: 06/20/2016 REASON FOR CONSULTATION: MRSA, nares, colonization, recommendation for antibiotic therapy. REFERRING PHYSICIAN: Dr. Jose Lott. HISTORY OF PRESENT ILLNESS: The patient is a 55-year-old male with a past medical history of Crohn disease, COPD, and hypertension, who presented to the emergency room with intractable abdominal pain from a [place] [facility]. The patient had multiple surgeries in the past due to Crohn disease, unable to see a pain doctor for a couple of days, and he was sent to the hospital for further evaluation. The patient was evaluated by Gastroenterology and Pulmonary. He had screening nares culture and the result came back positive for MRSA. The patient was referred to me for his nares culture result of MRSA colonization. REVIEW OF SYSTEMS: A 12-point system review was all negative apart from the ones I mentioned above in my history and physical. PAST MEDICAL HISTORY: Significant for hypertension, COPD, and Crohn disease. PAST SURGICAL HISTORY: He had multiple abdominal surgeries due to Crohn disease. SOCIAL HISTORY: The patient lives at a [place] [facility] facility. No recent drugs, tobacco, or alcohol. FAMILY HISTORY: Not contributory. ALLERGIES: He is allergic to morphine, lorazepam, and diphenhydramine. MEDICATIONS.: Please refer to MAR for further detail. LABORATORY DATA: White count 6, hemoglobin 13.9, and platelet count 224,000. BUN 9 and creatinine 1. Urinalysis was negative for urine infection or leukocyte esterase. Microbiology, his nares culture grew Staphylococcus aureus, MRSA. IMAGING: Abdominal x-ray showed dilated small-bowel loop, reflects ileus or small-bowel obstruction. Lumbar spine MRI showed spondylolisthesis at L5-S1, associated with bilateral L5 spondylolysis, moderate neural foraminal stenosis, impingement of the existing L5 nerve root bilaterally, degenerative disease at L4-L5, mild foraminal stenosis, old superior endplate compression fracture of L3 vertebra, multilevel facet arthropathy, and fused sacroiliac joint. PHYSICAL EXAMINATION: VITAL SIGNS: Temperature 97.9, pulse 96, respirations 20, blood pressure 99/63, and pulse oximetry 97% on room air. GENERAL: A middle-aged male, up in bed, awake, alert, oriented, and not in distress. HEENT: Normocephalic and atraumatic. Pupils are both reactive to light. Moist oral mucosa. NECK: Supple. No lymphadenopathy. CARDIOVASCULAR: Regular rate and rhythm. No murmur. LUNGS: Clear bilaterally. No wheezing or rhonchi. ABDOMEN: Soft, nontender, and nondistended. Positive bowel sounds. No hepatosplenomegaly. EXTREMITIES: No edema or cyanosis. ASSESSMENT AND PLAN: 1. Methicillin-resistant Staphylococcus aureus nares colonization. We will start the patient on Bactroban for five days to decolonize him. Keep in contact isolation for now. 2. Chronic obstructive pulmonary disease. Continue nebulizer treatment. Further management as per Pulmonary. 3. Crohn disease. Continue medications. GI is following. Follow up with GI as an outpatient. Zo Camacho M.D. DR: CHAD JOB#: [id number] CC:
--- NOTE | 2016-06-20 23:02 | Pulmonology Progress Note ---
Assessment/Plan Problems: (1) COPD (chronic obstructive pulmonary disease) (2) Abdominal distention (3) Crohns disease (4) Intractable abdominal pain Assessment/Plan pain consult appreciated low residual diet Iv fluids pain management respiratory treatment GI evaluation Subjective ROS Limited/Unobtainable: No Respiratory: Reports: dyspnea at rest, productive cough, shortness of breath Allergies: Coded Allergies: DIPHENHYDRAMINE (Verified Allergy, Unknown, 06/17/16) LORAZEPAM (Verified Allergy, Unknown, 06/17/16) MORPHINE (Verified Allergy, Unknown, 06/17/16) Objective Last 24 Hour Vital Signs Date Time Temp Pulse Resp B/P Pulse Ox O2 Delivery O2 Flow Rate FiO2 06/20/16 20:00 98.1 82 18 141/79 93 Room Air 06/20/16 16:00 97.0 86 20 135/83 99 Room Air 06/20/16 13:05 97.9 06/20/16 13:05 97.9 06/20/16 12:00 97.9 96 20 99/63 97 Room Air 06/20/16 08:00 97.9 80 20 127/80 95 Room Air 06/20/16 04:00 97.9 82 20 117/76 97 Room Air Intake and Output 06/19/16 06/20/16 19:00 07:00 Intake Total 1185 ml 300 ml Output Total 350 ml Balance 835 ml 300 ml Intake Oral 660 ml IV Total 525 ml 300 ml Output Urine Total 350 ml # Voids 2 # Bowel Movements 1 General Appearance: no acute distress HEENT: normocephalic, atraumatic, PERRL Respiratory/Chest: chest wall non-tender, decreased breath sounds, accessory muscle use, rhonchi Cardiovascular: normal peripheral pulses, normal rate, regular rhythm, no JVD Abdomen: normal bowel sounds, soft, non tender, no organomegaly, non distended Genitourinary: normal external genitalia Extremities: no cyanosis Skin: no rash, no lesions Neurologic/Psychiatric: receiver/laborer II-XII grossly normal, no motor/sensory deficits Laboratory Tests 06/20/16 06:00: Sodium Level 142, Potassium Level 4.0, Chloride Level 100, Carbon Dioxide Level 26, Anion Gap 16H, Blood Urea Nitrogen 9, Creatinine 1.0, Estimat Glomerular Filtration Rate > 60, Glucose Level 89, Calcium Level 8.6 06/20/16 08:30: White Blood Count 6.0, Red Blood Count 4.63L, Hemoglobin 13.9L, Hematocrit 42.9 , Mean Corpuscular Volume 93, Mean Corpuscular Hemoglobin 30.0, Mean Corpuscular Hemoglobin Concent 32.4, Red Cell Distribution Width 12.3, Platelet Count 224, Mean Platelet Volume 6.7, Neutrophils (%) (Auto) 59.4, Lymphocytes (% ) (Auto) 22.9, Monocytes (%) (Auto) 15.0H, Eosinophils (%) (Auto) 1.6, Basophils (%) (Auto) 1.1 Current Medications Medications (Trade) Dose Ordered Sig/William Route PRN Reason Start Time Stop Time Status Last Admin Dose Admin Acetaminophen (Tylenol) 650 mg Q4H PRN ORAL fever 06/17/16 20:00 07/17/16 19:59 Al Hydroxide/Mg Hydroxide (Mylanta II) 30 ml Q6H PRN ORAL dyspepsia 06/17/16 20:00 07/17/16 19:59 Amitriptyline HCl (Elavil) 100 mg BEDTIME ORAL 06/18/16 21:00 07/18/16 20:59 06/20/16 20:10 Cholestyramine Resin (Questran) 4 gm BID ORAL 06/18/16 18:00 07/18/16 17:59 06/19/16 19:39 Dextrose (Dextrose 50%) STAT PRN IV Hypoglycemia 06/17/16 20:00 07/17/16 19:59 Dextrose/Sodium Chloride (D5 0.45% NS) 1,000 ml @ 75 mls/hr [id number] IV 06/17/16 20:00 07/17/16 19:59 06/20/16 19:42 Diazepam (Valium) 5 mg Q12H PRN ORAL ANXIETY 06/18/16 07:45 06/25/16 07:44 06/20/16 20:57 Divalproex Sodium (Depakote Sprinkles) 125 mg Q12HR ORAL 06/18/16 22:30 07/18/16 22:29 06/20/16 20:11 Duloxetine HCl (Cymbalta) 30 mg DAILY ORAL 06/18/16 09:00 07/18/16 08:59 06/20/16 08:36 Fentanyl (Duragesic) 1 patch Q72H TDERMAL 06/19/16 09:00 06/26/16 08:59 06/19/16 10:31 Gabapentin (Neurontin) 600 mg THREE TIMES A DAY ORAL 06/18/16 09:00 07/18/16 08:59 06/20/16 20:10 Heparin Sodium (Porcine) (Heparin 5000 units/ml) 5,000 units EVERY 12 HOURS SUBQ 06/17/16 21:00 07/17/16 20:59 06/18/16 08:30 Hydromorphone HCl (Dilaudid) 3 mg EVERY 3 HOURS PRN IM Severe Pain (Pain Scale 7-10) 06/20/16 19:00 06/27/16 18:59 06/20/16 22:40 Mesalamine (Asacol) 800 mg THREE TIMES A DAY ORAL 06/18/16 14:00 07/18/16 13:59 06/20/16 20:09 Mupirocin (Bactroban Oint) 1 applic THREE TIMES A DAY TOPIC 06/20/16 15:30 06/25/16 09:01 06/20/16 20:12 Nitroglycerin (Ntg) 0.4 mg Q5M X 3 DOSES PRN SL Prn Chest Pain 06/17/16 20:00 07/17/16 19:59 Ondansetron HCl (Zofran) 4 mg Q6H PRN IVP Nausea & Vomiting 06/17/16 20:00 07/17/16 19:59 Polyethylene Glycol (Miralax) 17 gm HSPRN PRN ORAL Constipation 06/17/16 20:00 07/17/16 19:59 Risperidone (RisperDAL) 1 mg DAILY ORAL 06/18/16 09:00 07/18/16 08:59 06/20/16 08:36 Trazodone HCl (Desyrel) 150 mg BEDTIME ORAL 06/18/16 21:00 07/18/16 20:59 06/20/16 20:11 KHALIF RILEY Jun 20, 2016 23:02
[2016-06-21] MEDS: Depakote 125mg Sprinkles ORAL SCH (07:59)
[2016-06-21] MEDS: DULoxetine 30mg cap ORAL SCH (07:59)
[2016-06-21 08:00] VITALS: BP 138/77
[2016-06-21] MEDS: Cholestyramine 4gm Pkt ORAL SCH (08:00)
[2016-06-21] MEDS: Heparin 5000 units/ml inj SUBQ SCH (08:00)
[2016-06-21] MEDS ORDERED: D5 1/2NS 1000ml IV ONE (09:35)
--- NOTE | 2016-06-21 09:37 | General Progress Note ---
Assessment/Plan Assessment/Plan (1) Crohn's Disease (2) Intractable abdominal pain (3) Lumbar DDD (4) Lumbar Spondylosis Pt will be continued on Fentanyl and Dilaudid. We will change the Dilaudid 3mg IM to Q4H and add Oxycodone 10mg Q8H ATC hold for oversedation. Pt was advised to make a decision for the intra thecal pump which will be done as an outpt. Pt was d/w Dr. Ramírez and he concurred. Subjective Date patient seen: Jun 21, 2016 Time patient seen: 08:00 - am Allergies: Coded Allergies: DIPHENHYDRAMINE (Verified Allergy, Unknown, 06/17/16) LORAZEPAM (Verified Allergy, Unknown, 06/17/16) MORPHINE (Verified Allergy, Unknown, 06/17/16) Subjective Constitutional: Denies: chills, diaphoresis, fever, malaise, weakness HEENT: Reports: other, Denies: blurred vision, double vision, ear discharge, ear pain, eye pain, mouth pain, mouth swelling, nose congestion, nose pain, tearing, throat pain, throat swelling Cardiovascular: Denies: chest pain, edema, irregular heart rate, lightheadedness, palpitations, syncope Respiratory: Denies: SOB at rest, SOB with excertion, cough, orthopnea, shortness of breath, sputum, stridor, wheezing Gastrointestinal/Abdominal: Reports: abdominal pain, Denies: abdomen distended , black stools, blood in stool, constipated, diarrhea, difficulty swallowing, nausea, poor appetite, poor fluid intake, rectal bleeding, tarry stools, vomiting Genitourinary: Denies: burning, discharge, flank pain, frequency, hematuria, incontinence, pain, urgency Neurologic/Psychiatric: Denies: anxiety, depressed, emotional problems, headache, numbness, paresthesia, pre-existing deficit, seizure, tingling, tremors, weakness Endocrine: Denies: excessive sweating, flushing, increased hunger, increased thirst, increased urine, intolerance to cold, intolerance to heat, unexplained weight gain, unexplained weight loss Hematologic/Lymphatic: Denies: anemia, easy bleeding, easy bruising Subjective Pts pain has been tolerated on the Fentanyl patch and Dilaudid. I d/w him in detail about narcotic tolerance and he will make a decision for intra thecal pump as an option in the future. Objective Last 24 Hour Vital Signs Date Time Temp Pulse Resp B/P Pulse Ox O2 Delivery O2 Flow Rate FiO2 06/21/16 08:35 98.1 06/21/16 08:35 98.1 06/20/16 20:00 98.1 82 18 141/79 93 Room Air 06/20/16 16:00 97.0 86 20 135/83 99 Room Air 06/20/16 13:05 97.9 06/20/16 12:00 97.9 96 20 99/63 97 Room Air Intake and Output 06/20/16 06/21/16 19:00 07:00 Intake Total 840 ml 1325 ml Balance 840 ml 1325 ml Intake Oral 240 ml 500 ml IV Total 600 ml 825 ml # Voids 1 # Bowel Movements 3 Laboratory Tests 06/20/16 23:40: Urine Opiates Screen PositiveH, Urine Barbiturates Screen Negative, Phencyclidine (PCP) Screen Negative, Urine Amphetamines Screen Negative, Urine Benzodiazepines Screen PositiveH, Urine Cocaine Screen Negative, Urine Marijuana (THC) Screen Negative Height (Feet): 5 Height (Inches): 7.00 Weight (Pounds): 174 Objective General Appearance: no apparent distress EENT: PERRL/EOMI, normal ENT inspection Neck: non-tender, normal alignment Cardiovascular: normal rate, regular rhythm Respiratory/Chest: lungs clear, normal breath sounds Abdomen: tender Extremities: non-tender Edema: no edema noted Arm (L), no edema noted Arm (R), no edema noted Leg (L), no edema noted Leg (R), no edema noted Pedal (L), no edema noted Pedal (R), no edema noted Generalized Neurologic: alert, responsive Skin: warm/dry MILAN MALLOY Jun 21, 2016 09:37
[2016-06-21] MEDS ORDERED: oxyCODONE 5mg IR tab ORAL SCH (09:45)
--- NOTE | 2016-06-24 13:10 | Discharge Summary ---
Discharge Summary Hospital Course Date of Admission Jun 17, 2016 at 18:08 Date of Discharge Jun 21, 2016 at 09:36 Admitting Diagnosis interactable pain HPI Ronak Herring is a 55 year old male who was admitted on Jun 17, 2016 at 18: 08 for Interactable Pain Hospital Course #[id number] Discharge Medications Continued Medications: Amitriptyline HCl (Amitriptyline HCl) 100 Mg Tablet 100 MG ORAL BEDTIME, TAB Cholestyramine (With Sugar) (Questran Powder) 378 Gm Powder 4 GM ORAL BID, GM Diazepam* (Diazepam*) 5 Mg Tablet 5 MG ORAL Q12HR PRN for ANXIETY, #30 TAB 0 Refills Duloxetine Hcl* (Cymbalta*) 30 Mg Capsule.dr 30 MG ORAL DAILY, CAP Fentanyl 50MCG Patch (Fentanyl 50MCG Patch*) 1 Each Patch.td72 2 PATCH TOPIC EVERY 72 HOURS, PATCH Gabapentin* (Gabapentin*) 600 Mg Tablet 600 MG ORAL THREE TIMES A DAY, TAB Hydromorphone HCl (Dilaudid) 4 Mg Tablet 3 MG IM Q4H, #20 TAB 0 Refills Mesalamine (Mesalamine) 800 Mg Tablet.dr 800 MG PO, TAB Mupirocin* (Mupirocin*) 22 Gm Oint...g. 1 APPLIC TOPIC THREE TIMES A DAY for Per rx protocol, GM Nitroglycerin (Nitroglycerin) 0.4 Mg Tab.subl 0.4 MG SL Q5MIN X 3 DOSES for Prn Chest Pain, TAB Polyethylene Glycol 3350* (Miralax*) 17 Gm Powd.pack 17 GM ORAL DAILY PRN for Constipation, PACKET Risperidone* (Risperdal*) 1 Mg Tablet 1 MG PO DAILY, TAB Trazodone* (Trazodone*) 150 Mg Tablet 150 MG ORAL BEDTIME, TAB Discharge Condition Upon Discharge: stable Discharge Disposition Patient was discharged to SNF/Subacute Facility(03) Discharge Diagnoses: Discharge Instructions Discharge Instructions Special Instructions I have been assigned to complete a D/C Summary on this account. I was not involved in the patient management Alley Garland NP ([facility]te[place]) Jun 24, 2016 13:10
--- NOTE | 2016-06-25 01:29 | Discharge Summary 2 SIG ---
DATE OF ADMISSION: 06/17/2016 DATE OF DISCHARGE: 06/21/2016 REASON FOR ADMISSION: 55-year-old male, resident of a residential facility, presented with complaint of abdominal pain. The patient with a history of chronic abdominal pain and Crohn disease. He had multiple surgeries in the past fro this condition. He was not able to see the hand paint mixer for few weeks. The facility was unable to renew his pain medication, and he was sent for evaluation. Abdominal pain was sharp 9 to 10/10 on the scale 1 to 10 and non-radiating. He denied chest pain. Denied shortness of breath. No nausea. No vomiting. No blood in the stool. Abdominal x-ray revealed dilated bowels. The patient had no leukocytosis. Stable hemoglobin and hematocrit. Electrolytes stable. Blood pressure was elevated. The patient was started on clonidine. The patient was admitted for further management. ADMITTING DIAGNOSES: 1. Intractable abdominal pain. 2. Crohn disease. 3. Hypertensive urgency (resolved). 4. Chronic obstructive pulmonary disease. HOSPITAL STAY: The patient was admitted. Supplemental oxygen and pulmonary toilet provided as needed. Subsequently, on 06/19/2016, MRI of the lumbar spine was done, which revealed multilevel lumbar spine disease, multilevel facet arthropathy, degenerative disc disease at levels L4 and L5, grade 1 spondylolisthesis at L5-S1, which associated with his bilateral L5 spondylosis and moderate neural foraminal stenosis and impingement of the existing L5 neural bilaterally. payroll accounting specialist was consulted, who seen and evaluated the patient and optimized medication regimen. Blood pressure was stable. Gastrointestinal specialist seen and evaluated the patient and recommended low residual diet , He started the patient on Questran. The patient was able to tolerate diet. Pain control with the current regimen was maintained. Patient with known history of COPD, no evidence of COPD exacerbation. All laboratory work was stable. The patient was stable for discharge to residential facility. DISCHARGE DIAGNOSES: 1. Intractable abdominal pain. 2. Crohn disease. 3. Hypertensive urgency. 4. Chronic obstructive pulmonary disease. 5. Lumbar degenerative disc disorder. 6. Lumbar spondylosis. 7. Multilevel facet arthropathy. DISCHARGE MEDICATIONS: See medication reconciliation list. Continue Questran. DISCHARGE INSTRUCTIONS: Follow up with medical doctor at the facility and pain specialist. Jose Lott D.O. I have been assigned to dictate discharge summary on this account and I was not involved in the patient's management. Alley Garland (Vanchtein) NGaryPGary DR: EDGAR JOB#: [id number] CC: RENA
== END 2016-06-21 09:36 | DRG 392 ==
LOC: EDBD 16:55 → EDBEDREQ 17:23 → EMR 18:01 → 3E 18:08 → EDBEDREQ 20:34
DX: R10.9 Unspecified abdominal pain (principal); K50.90 Crohn's disease, unspecified, without complications; I10 Essential (primary) hypertension; J44.9 Chronic obstructive pulmonary disease, unspecified; Z88.6 Allergy status to analgesic agent; Z88.8 Allergy status to other drugs, medicaments and biological substances; I16.0 Hypertensive urgency; M51.36 Other intervertebral disc degeneration, lumbar region; M43.16 Spondylolisthesis, lumbar region; Z90.49 Acquired absence of other specified parts of digestive tract; Z86.73 Personal history of transient ischemic attack (TIA), and cerebral infarction without residual deficits; Z22.322 Carrier or suspected carrier of Methicillin resistant Staphylococcus aureus; Z87.891 Personal history of nicotine dependence; R14.0 Abdominal distension (gaseous)
CPT/HCPCS: 36415; 72148; 74000; 80048; 80053; 80300; 81003; 82150; 83690; 85025; 85730; 86140; 87081

== ENCOUNTER 2016-09-24 22:01 | Emergency (ER) | payer MEDICARE, MEDICAID ==
[~2016-09-24] VITALS: Ht 175.3 cm; Wt 79.4 kg
[~2016-09-24 22:01] MED LIST: AMITRIPTYLINE100 MG ORAL; CHOLESTYRAMINE R5 GM MC; CYMBALTA30 MG ORAL; DEPAKOTE125 MG PO; DIAZEPAM5 MG ORAL; DILAUDID4 MG IM; FAMOTIDINE20 MG ORAL; FENTANYL1 EAC1 TOPIC; FLUTICASONE PRO16 G1 NASAL; GABAPENTIN600 MG ORAL; LISINOPRIL40 MG ORAL; MESALAMINE800 MG PO; MIRALAX17 G2 ORAL; MULTIVITAMINS1 EAC2 ORAL; MUPIROCIN22 GM TOPIC; NITROGLYCERIN0.4 MG SL; QUESTRAN POWDE378 GM ORAL; RISPERDAL1 MG PO; TRAZODONE HCL150 MG ORAL; VITAMIN C500 M1 ORAL
[2016-09-24 22:10] VITALS: BP 107/89
[2016-09-24 23:48] LABS: ALANINE AMINOTRANSFERASE 14 U/L (3-41); ALBUMIN/GLOBULIN RATIO 0.8 (1.0-2.7); ANION GAP 16 (5-15); ASPARTATE AMINO TRANSFERASE 26 U/L (5-40); CALCIUM 8.9 mg/dL (8.6-10.2); CARBON DIOXIDE 24 mEQ/L (20-30); CHLORIDE 98 mEQ/L (98-107); CREATININE 0.9 mg/dL (0.7-1.2); GLOMERULAR FILTRATION RATE > 60 mL/min (>60); HEMOLYSIS 102; LIPASE 15 U/L (< 60); POTASSIUM 4.6 mEQ/L (3.4-4.9); SODIUM 138 mEQ/L (135-145)
[2016-09-24 23:57] LABS: EOSINOPHILS % (AUTO) 8.3 % (0.0-3.0); LYMPHOCYTES % (AUTO) 21.6 % (20.0-45.0); MEAN CORPUSCULAR HEMOGLOBIN 31.8 PG (27.0-31.0); MEAN CORPUSCULAR HGB CONC 34.3 G/DL (32.0-36.0); MEAN CORPUSCULAR VOLUME 93 FL (80-99); MEAN PLATELET VOLUME 5.2 FL (6.5-10.1); MONOCYTES % (AUTO) 18.8 % (1.0-10.0); NEUTROPHILS % (AUTO) 47.3 % (45.0-75.0); PLATELET COUNT 376 K/UL (150-450); RED BLOOD COUNT 3.69 M/UL (4.70-6.10); WHITE BLOOD COUNT 6.3 K/UL (4.8-10.8)
[2016-09-24 23:58] LABS: APPEARANCE,URINE CLEAR; KETONES,URINE NEGATIVE (NEGATIVE); LEUKOCYTE ESTERASE ,URINE 1+ (NEGATIVE); NITRITE,URINE NEGATIVE (NEGATIVE); PH,URINE 6 (4.5-8.0); PROTEIN,URINE 1+ (NEGATIVE); UROBILINOGEN,URINE 4 MG/DL (0.0-1.0)
[2016-09-25 00:05] VITALS: BP 115/84
[2016-09-25 00:09] LABS: BACTERIA,URINE FEW /HPF; MUCUS,URINE MANY /LPF (NONE/OCC); RBC,URINE 0-2 /HPF (0 - 0); SQUAMOUS EPITHELIAL CELL,UR FEW /LPF (NONE/OCC)
[2016-09-25] MEDS ORDERED: HYDROmorphone 1mg/ml Carpuject IVP ONE (01:15)
--- NOTE | 2016-09-25 01:18 | Emergency Room Report ---
History of Present Illness General Chief Complaint: Abdominal Pain Source: Patient, Medical Record Present Illness HPI This is a 56-year-old male with history of Crohn disease. He has extensive abdominal surgery. He is also require heavy doses of Dilaudid around-the- clock. He was just admitted for intractable abdominal pain. Labs are unremarkable. He was sent to a skilled nursing. He did not like the pain regimen he received there. He was getting Dilaudid 2 mg IM every 4 hours. He said he get pain 28. He claimed that he has vomiting and diarrhea. No blood. Pain is 10 out of 10. No other complaint. Allergies: Coded Allergies: DIPHENHYDRAMINE (Verified Allergy, Unknown, 06/17/16) LORAZEPAM (Verified Allergy, Unknown, 06/17/16) MORPHINE (Verified Allergy, Unknown, 06/17/16) Patient History Past Medical History: see triage record, old chart reviewed Past Surgical History: other Pertinent Family History: none Social History: Denies: smoking Immunizations: other Reviewed Nursing Documentation: PMH: Agreed, PSxH: Agreed Nursing Documentation-PMH Past Medical History: No History, Except For Hx Hypertension: Yes Hx COPD: Yes - PNA, Review of Systems Eye: Denies: blurred vision, eye pain ENT: Denies: ear pain, nose congestion, throat swelling Respiratory: Denies: cough, shortness of breath Cardiovascular: Denies: chest pain, palpitations Gastrointestinal: Reports: abdominal pain, diarrhea, nausea, vomiting Musculoskeletal: Denies: back pain, joint pain Skin: Denies: rash Neurological: Denies: headache, numbness Endocrine: Denies: increased thirst, increased urine Hematologic/Lymphatic: Denies: easy bruising All Other Systems: negative except mentioned in HPI Physical Exam Vital Signs Date Time Temp Pulse Resp B/P Pulse Ox O2 Delivery O2 Flow Rate FiO2 09/24/16 21:51 100.0 96 16 139/90 94 Room Air vitals low-grade fever. Repeat normal Sp02 EP Interpretation: reviewed, normal General Appearance: well appearing, no apparent distress, alert Head: normocephalic, atraumatic Eyes: bilateral eye EOMI, bilateral eye PERRL ENT: hearing grossly normal, normal pharynx Neck: full range of motion, supple, no meningismus Respiratory: chest non-tender, lungs clear, normal breath sounds Cardiovascular #1: regular rate, rhythm, no murmur Gastrointestinal: normal bowel sounds, no mass, no organomegaly, no bruit, non- distended, tenderness - Soft, diffuse tenderness. No localization. Mild pain. Musculoskeletal: back normal, gait/station normal, normal range of motion Psychiatric: mood/affect normal Skin: warm/dry Medical Decision Making Diagnostic Impression: Primary Impression: Abdominal pain Qualified Codes: R10.84 - Generalized abdominal pain Additional Impression: Opioid dependence Qualified Codes: F11.20 - Opioid dependence, uncomplicated ER Course Patient complaining of abdominal pain. Abdominal exam is benign. Labs unremarkable. No evidence of dehydration. I see no criteria for admission. He is walking around comfortably. Repeat temperature here is normal without any intervention. No evidence of infection. I discussed the case with Dr. Salmon who agreed with treatment plan and dc back to SNF. Lab Results Impression labs at baseline Last Vital Signs Date Time Temp Pulse Resp B/P Pulse Ox O2 Delivery O2 Flow Rate FiO2 09/24/16 22:10 98.8 94 15 107/89 98 Room Air Status: improved Disposition: [facility] SN[facility] Condition: Stable Referrals: JG SALMON (PCP) Patient Instructions: Abdominal Pain, Adult Additional Instructions: Followup with your in 7 days. Continue with current pain management. Return for any new complaint. ANNALISE CROW M.D. Sep 25, 2016 01:18
[2016-09-25 01:35] VITALS: BP 120/82
== END 2016-09-25 01:35 ==
LOC: EDBD 22:01 → EMR 22:11
DX: R10.84 Generalized abdominal pain (principal); F11.20 Opioid dependence, uncomplicated; Z88.6 Allergy status to analgesic agent; Z88.8 Allergy status to other drugs, medicaments and biological substances; I10 Essential (primary) hypertension; J44.9 Chronic obstructive pulmonary disease, unspecified; R11.2 Nausea with vomiting, unspecified
CPT/HCPCS: 36415; 80053; 81003; 83690; 85025; 96360; 96374; 96375; 99284; J1170; J2405